=== PATIENT | female | born 1940 | race African-American/Black ===

== ENCOUNTER 2019-12-15 18:02 | Emergency (ER) | payer BC ==
[2019-12-15 18:11] VITALS: BMI 28.3
--- NOTE | 2019-12-15 18:12 | PDOC ---
Rapid Medical Evaluation Chief Complaint: Nasal Bleeding Time Seen by Provider: 12/15/19 18:11 Medical Evaluation: Allergies Allergy/AdvReac Type Severity Reaction Status Date / Time No Known Allergies Allergy Verified 12/15/19 18:07 Vital Signs Temp Pulse Resp BP Pulse Ox 98.0 F 99 H 16 153/68 98 12/15/19 18:08 12/15/19 18:08 12/15/19 18:08 12/15/19 18:08 12/15/19 18:08 12/15/19 18:12 79 y/o F w/ Nose bleed x 2.5 hours PE: Blood on mask ORDERS: LAbs Discharge Disposition - Diagnosis Epistaxis - Discharge Dispostion Condition at time of disposition: Stable - Referrals - Patient Instructions - Post Discharge Activity
[2019-12-15] MEDS ORDERED: OXYMETAZOLINE 0.05% NASAL SOLUTION 15 ML BOTTLE NS ONE (18:16)
[2019-12-15] MEDS ORDERED: LIDOCAINE HCL 1%, 10 MG/ML (20ML VIAL) ONE (18:16)
[2019-12-15] MEDS ORDERED: LIDOCAINE HCL 1%, 10 MG/ML (50 mL VIAL) SQ ONE (18:16)
--- NOTE | 2019-12-15 18:47 | PDOC ---
History of Present Illness - General Chief Complaint: Nasal Bleeding Stated Complaint: NOSE BLEED Time Seen by Provider: 12/15/19 18:11 History Source: Patient Exam Limitations: No Limitations - History of Present Illness Initial Comments: 12/15/19 18:48 79 y.o. F no significant PMHx. Patient is presenting due to anterior nasal bleed onset 3 hours ago. Patient has seasonal allergies and says her nose has been dry recently. Patient attempted to use napkins to clot but would not stop. In the ED we used licocaine 1%, afrim and nasal rhino 4.5mm to pack. PCP: Dr. Romero ENT: Dr. Eric ([address] [facility]) PMHx: No significant PSHx: Partial hysterectomy 1973 Meds: In Chart Allergies: NKDA Dispo: D/C Home 12/15/19 20:40 Is this a multiple visit Asthma Patient?: No Timing/Duration: 1-3 hours Severity: moderate Associated Symptoms: reports: nausea/vomiting Aspirin Received prior to arrival: Yes: 81 mg x 1 Beta Thaddeus Contraindications(Core Measure): Yes: Not Prescribed Beta Thaddeus Given by EMS(Core Measure): No Beta Thaddeus Taken at Home(Core Measure): No Beta Thaddeus Not Indicated at this Time(Core Measure): Yes Past History - Travel History Traveled outside of the country in the last 30 days: No Close contact w/someone who was outside of country & ill: No - Medical History Allergies/Adverse Reactions: Allergies Allergy/AdvReac Type Severity Reaction Status Date / Time No Known Allergies Allergy Verified 12/15/19 18:07 Home Medications: Ambulatory Orders Cephalexin [Keflex] 500 mg PO QID #20 capsule 12/15/19 COPD: No - Reproductive History Is Patient Now?: No - Psycho-Social/Smoking History Smoking History: Never smoked Have you smoked in the past 12 months: No Information on smoking cessation initiated: No - Substance Abuse Hx (Audit-C & DAST Scrn) How often the patient has a drink containing alcohol: Never Score: In Men: 4 or > Positive; In Women: 3 or > Positive: 0 Screen Result (Pos requires Nsg. Audit-10AR): Negative In the last yr the pt used illegal drug/Rx for NonMed reason: No Score: Yes response is considered Positive: 0 Screen Result (Positive result requires Nsg. DAST-10): Negative *Physical Exam - Vital Signs Last Vital Signs Temp Pulse Resp BP Pulse Ox 98.0 F 99 H 16 153/68 98 12/15/19 18:08 12/15/19 18:08 12/15/19 18:08 12/15/19 18:08 12/15/19 18:08 ED Treatment Course - LABORATORY CBC & Chemistry Diagram: 12/15/19 18:54 12/15/19 18:54 - Medications Given in the ED: ED Medications Discontinued Medications Generic Name Dose Route Start Last Admin Trade Name Juan PRN Reason Stop Dose Admin Lidocaine HCl 5 ml 12/15/19 18:16 12/15/19 18:33 Xylocaine 1% SQ 12/15/19 18:17 5 ml ONCE ONE Administration Oxymetazoline HCl 1 spray 12/15/19 18:16 12/15/19 18:33 Afrin - NS 12/15/19 18:17 1 spray ONCE ONE Administration Medical Decision Making - Medical Decision Making 12/15/19 18:58 79 y.o. F no significant PMHx. Patient is presenting due to anterior nasal bleed onset 3 hours ago. DDx: Anterior nose bleed, posterior nosebleed. Labs: Hgb 11.8, Hct 38.7, INR 1.02, PTT 36.7 Procedures: Licocaine 1%, Afrim and Nasal rhino 4.5mm to insert and pack Vitals: WNL Dispo: D/C home, f/u with ENT. 12/15/19 20:51 Discharge - Discharge Information Problems reviewed: Yes Clinical Impression/Diagnosis: Epistaxis Condition: Stable Disposition: HOME - Additional Discharge Information Prescriptions: Cephalexin [Keflex] 500 mg PO QID #20 capsule - Follow up/Referral Referrals: Jay Smith MD [Staff Physician] - Bernardino Rajan MD [Staff Physician] - - Patient Discharge Instructions Patient Printed Discharge Instructions: Nosebleed, DI for Nosebleed Additional Instructions: You were seen in the emergency department for Nosebleed. You received afrim, lidocaine and a nasal rhino . Your labs and vitals showed you are now stable and no active bleed. This can be caused by dry air, allergies. As such you were treated for a nosebleed. You were given afrim, lidocaine and nasal rhino in the emergency department and sent home with a prescription of keflex. Please follow up with your primary care physician and or ENT Dr. Dk Rajan regarding your visit to the emergency department. If you experience profound nose bleeds or shortness of breath, please return to the emergency department or call 911. - Post Discharge Activity
--- NOTE | 2019-12-15 18:52 | PDOC ---
Documentation entered by Watson Easley SCRIBE, acting as scribe for Willa Mcintyre DO. Willa Mcintyre, DO: This documentation has been prepared by the Tracee atwood Angel, SCRIBE, under my direction and personally reviewed by me in its entirety. I confirm that the documentation accurately reflects all work, treatment, procedures, and medical decision making performed by me. Attending Attestation - Resident Resident Name: [email or web address] - ED Attending Attestation I have performed the following: I have examined & evaluated the patient, The case was reviewed & discussed with the resident, I agree w/resident's findings & plan, Exceptions are as noted - HPI HPI: 12/15/19 18:58 The patient is a 79 year old female with no significant past medical history who presents to the ED with a nasal bleed from her left nostril for the last 3 hours. The patient notes feeling slightly lightheaded but states she normally gets nose bleeds around this time of year. Patient does take a daily baby aspirin. The patient does not have any other complaints here in the ED. - Physicial Exam PE: 12/15/19 18:45 gen: aaox3, active bleeding from L nare heent: MMM, no active bleeding in posterior pharynx, L nare with active venous bleeding, no exact site of bleeding visualized heart: +s1s2 reg lungs: cta b/l - Medical Decision Making 12/15/19 18:47 a/p: 79yo female who took a baby asa for a [place] and then developed anterior nasal bleeding today -states bleeding for 3 hours -states she feels a little lightheaded -venous bleeding L nare -when she blows her nose there are clots -no site visualized to cauterize -no bleeding posterior pharynx -pt packed and held pressure with afrin, but did not stop bleeding -anterior rapid rhino placed by the resident, inflated, no active bleeding -labs pending 12/15/19 19:32 no bleeding on re-eval 12/15/19 19:32 hgb 12.8 plts 176 12/15/19 20:30 labs reviewed pending repeat vitals Discharge - Discharge Information Problems reviewed: Yes Clinical Impression/Diagnosis: Epistaxis Condition: Stable Disposition: HOME - Admission No - Additional Discharge Information Prescriptions: Cephalexin [Keflex] 500 mg PO QID #20 capsule - Follow up/Referral Referrals: Jay Smith MD [Staff Physician] - - Patient Discharge Instructions Patient Printed Discharge Instructions: DI for Nosebleed - Post Discharge Activity
[2019-12-15 19:26] LABS: BASO % 0.5 % (0-2.0); HEMATOCRIT 38.7 % (32.4-45.2); HEMOGLOBIN 12.8 GM/dL (10.7-15.3); LYMPH % 38.9 % (8-40); MCH 28.7 pg (25.7-33.7); MEAN PLT VOLUME 10.9 fl (7.5-11.1); MONO % 13.6 % (3.8-10.2); PLATELET COUNT 176 K/MM3 (134-434); RBC 4.45 M/mm3 (3.60-5.2); RDW 13.4 % (11.6-15.6); WHITE BLOOD COUNT 4.4 K/mm3 (4.0-10.0)
[2019-12-15 19:37] LABS: INR 1.02 (0.83-1.09)
[2019-12-15 19:40] LABS: ACTIVATED PTT 36.7 SECONDS (25.2-36.5)
[2019-12-15 20:07] LABS: ALBUMIN 3.8 g/dl (3.4-5.0); BILIRUBIN,TOTAL 0.4 mg/dL (0.2-1); BLOOD UREA NITROGEN 22.1 mg/dL (7-18); CALCIUM 9.5 mg/dL (8.5-10.1); CREATININE 0.7 mg/dL (0.55-1.3); POTASSIUM 4.3 mmol/L (3.5-5.1); TOT PROT 7.4 g/dl (6.4-8.2)
[2019-12-15 20:59] VITALS: BP 157/80; PULSE 92; TEMP 98.3
== END 2019-12-15 21:09 | disposition home or self-care (01) ==
LOC: JER 18:02
DX: R04.0 Epistaxis (principal)
CPT/HCPCS: 36415; 80053; 85025; 85610; 85730; 86850; 86900; 86901; 99284-25

== ENCOUNTER 2019-12-18 15:54 | Emergency (ER) | payer BC ==
[2019-12-18 16:11] VITALS: BP 121/76; PULSE 94; TEMP 98.3; BMI 28.3
--- OUTSIDE RECORDS SUMMARY | 2019-12-18 16:21 | XMS ---
:1940 [facility] Organization [facility] Care Team Providers Name Role Phone Dodoo Unavailable Dodoo Unavailable UNDERWOOD 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 BUILDER Unavailable UNDERWOOD 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 BUILDER Unavailable UNDERWOOD 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 BUILDER Unavailable UNDERWOOD 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 BUILDER Unavailable UNDERWOOD 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 BUILDER Unavailable MARYCRUZ HYDE, IP Unavailable MARYCRUZ HYDE, IP Unavailable MARYCRUZ HYDE, IP Unavailable MARYCRUZ HYDE, IP Unavailable MARYCRUZ HYDE, IP Unavailable MARYCRUZ HYDE, IP Unavailable Adriane LATHE HAND Unavailable Adriane LATHE HAND Unavailable Adriane LATHE HAND Unavailable LONG CNM Unavailable LONG CNM Unavailable LONG CNM Unavailable LONG CNM Unavailable NICK HYDE Unavailable Unavailable NICK HYDE Unavailable Unavailable NICK HYDE Unavailable Unavailable NICK HYDE Unavailable Unavailable NICK HYDE Unavailable Unavailable NICK HYDE Unavailable Unavailable NICK HYDE Unavailable Unavailable NICK HYDE Unavailable Unavailable RODOLFO DPM Unavailable GRINION LATHE HAND, M Unavailable GRINION LATHE HAND, M Unavailable + GRINION LATHE HAND, M Unavailable Tor, DO Unavailable Unavailable LEAVELLE PA Unavailable LEAVELLE PA Unavailable LEAVELLE PA Unavailable LEAVELLE PA Unavailable JODY HYDE Unavailable JACKSON DDS Unavailable JONAS DO Unavailable JONAS DO Unavailable MD Nick Unavailable Unavailable Chapincito TOBAR Unavailable Unavailable Chapincito TOBAR Unavailable Unavailable Chapincito TOBAR Unavailable Unavailable Chapincito TOBAR Unavailable Unavailable Re-disclosure Warning The records that you are about to access may contain information from federally- assisted alcohol or drug abuse programs. If such information is present, then the following federally mandated warning applies: This information has been disclosed to you from records protected by federal confidentiality rules (42 CFR part 2). The federal rules prohibit you from making any further disclosure of this information unless further disclosure is expressly permitted by the written consent of the person to whom it pertains or as otherwise permitted by 42 CFR part 2. A general authorization for the release of medical or other information is NOT sufficient for this purpose. The Federal rules restrict any use of the information to criminally investigate or prosecute any alcohol or drug abuse patient.The records that you are about to access may contain highly sensitive health information, the redisclosure of which is protected by Article 27-F of the [place] State Public Health law. If you continue you may haveaccess to information: Regarding HIV / AIDS; Provided by facilities licensed or operated by the [facility] Office of Mental Health; or Provided by the [facility] Office for People With Developmental Disabilities. If such information is present, then the following [facility] mandated warning applies: This information has been disclosed to you from confidential records which are protected by state law. State law prohibits you from making any further disclosure of this information without the specific written consent of the person to whom it pertains, or as otherwise permitted by law. Any unauthorized further disclosure in violation of state law may result in a fine or prison sentence or both. A general authorization for the release of medical or other information is NOT sufficient authorization for further disclosure. Allergies and Adverse Reactions Type Description Substance Reaction Status Data Source(s ) Drug allergy Penicillins Penicillins UNKNOWN [facility] Drug allergy penicillin G penicillin G Active JHON ([facility] benzathine 069821 benzathine 987805 [place] UNT/ML Injectable UNT/ML Injectable Health Center) Suspension Suspension Drug allergy penicillin G penicillin G Active JHON ([facility] benzathine 915977 benzathine 362910 [place]ighborhood UNT/ML Injectable UNT/ML Injectable Health Center) Suspension Suspension Drug allergy penicillin G penicillin G Active JHON ([facility] benzathine 935422 benzathine 982338 [place] UNT/ML Injectable UNT/ML Injectable Health Center) Suspension Suspension Drug allergy penicillin G penicillin G Active JHON ([facility] benzathine 530453 benzathine 590879 [place] UNT/ML Injectable UNT/ML Injectable Health Center) Suspension Suspension Drug allergy penicillin G penicillin G Active JHON ([facility] benzathine 804519 benzathine 301101 [place]ighborhood UNT/ML Injectable UNT/ML Injectable Health Center) Suspension Suspension Encounters Encounter Providers Location Date Indications Data Source(s ) Outpatient<td Attender: Dasia Vides Limb Pain Thigh GR [place] ([place] ID="encounterT Adriane [facility] 0 [place] ypeDescription 10:15:00 Neighborho od ID0">GB AM EDT - Health Center) WALK-IN</td><t d>Dasia Forrest 0 LATHE HAND</td><td>[facility]</td><td >08/25/2019</t d><td><content ID="encounterD iagnosisID0-0" >Limb Pain Thigh</content ></td> Limb Pain Thigh Outpatient<td Attender: [facility] 05/25/2019 Acquired [place] ID="encounterTypeDescriptionID1">OFFICE [facility] 1 0:00:00 AM Deformity of ([place] VISIT</td><td>[facility] EST - [place]e - [place] Neighborhood DP</td><td>[facility] DPM 05/25/2019 Toe Health Center</td><td>05/25/2019</td><td><content 01:0 0:05 PM LeftAcquired Center) ID="encounterDiagnosisID1-0">Acquired EST Deformity of Deformity of Toe - [place] Toe Toe - Hammer Right</content>, <content Toe Right ID="encounterDiagnosisID1-1">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</content></td> Acquired Deformity of Toe - [place] Toe L eft Acquired Deformity of Toe - [place] Toe R ight Outpatient<td Attender: [facility] 05/06/2019 [place] ID="encounterTypeDescriptionID2">*No [facility] 05:09:00 P M ([place] Show*</td><td>[facility] EST - Neighborhood PA</td><td>[facility] PA 05/06/2019 Health Center</td><td>05/06/2019</td><td></td> 11:59:0 0 PM Center) EST Outpatient Attender: 02/09/2019 Ciaran De Santiago 02:06:00 PM Alina Romero MD EST R E E N M A M M O R X O P M L B SCREEN MAMMO RX OP MLB Outpatient<td ID="encounterTypeDescriptionID3">COMPLETE Attender : [facility] 02/04/2019 Osteoarthritis Localized Shoulder [place] PHYSICAL EXAM</td><td>ANYI ROMERO MD</td><td>[facility] 11:30:00 AM RightOsteoarthritis Localized ([facility]</td><td>02/04/2019</td><td><aldo ROMERO MD [facility] EST - ShoulderOsteoarthritis Localized Neighborhood ID="encounterDiagnosisID3-0">Hyperlipidemia</content>, 02/04/2019 [facility] <content ID="encounterDiagnosisID3-1">Glucose 01:09:18 PM Localized Shoulder RightOsteoarthritis Center) Intolerance</content>, <content EST Loca lized ShoulderOsteoarthritis ID="encounterDiagnosisID3-2">Osteoarthritis</content>, Localized PrimaryOsteoarthritisGlucose <content ID="encounterDiagnosisID3-3">Osteoarthritis IntoleranceGlucose Localized Primary</content>, <content IntoleranceHyperlipidemiaHyperlipidemia ID="encounterDiagnosisID3-4">Osteoarthritis Localized Shoulder</content>, <content ID="encounterDiagnosisID3-5">Osteoarthritis Localized Shoulder Right</content></td> Osteoarthritis Localized Shoulder Right Osteoarthritis Localized Shoulder Osteoarthritis Localized Primary Osteoarthritis Osteoarthritis Localized Shoulder Right Osteoarthritis Localized Shoulder Osteoarthritis Localized Primary Osteoarthritis Glucose Intolerance Glucose Intolerance Hyperlipidemia Hyperlipidemia Outpatient<td Attender: [facility] 01/21/2019 [place] ID="encounterTypeDescriptionID4">*No [facility] 10:40:00 A M ([place] Show*</td><td>[facility] EDT - Neighborhood DPM</td><td>[facility] DP 01/21/2019 Health Center</td><td>01/21/2019</td><td></td> 11:59:0 0 PM Center) EDT Outpatient<td Attender: [facility] 01/19/2019 Alina [place] ID="encounterTypeDescriptionID5">OFFICE [facility] 11:00:0 0 AM a ([place] VISIT</td><td>BELLFLOWER JODY VERA MD Center EDT - t Neighborhood </td><td>[facility] 01/19/2019 a Health Center</td><td>01/19/2019</td><td><mele 02:41: 17 PM r Center) nt ID="encounterDiagnosisID5-0">Cataract EDT a Senile Nuclear</content></td> c t S e n i l e N u c l e a r C a t a r a c t S e n i l e N u c l e a r C a t a r a c t S e n i l e N u c l e a r Cataract Senile Nuclear Cataract Senile Nuclear Cataract Senile Nuclear Outpatient<td Attender: [facility] 10/28/2018 [place] ID="encounterTypeDescriptionID6">*No [facility] 06:02:00 P M ([place] Show*</td><td>ANYI ROMERO MD [place] HERMILO Stark MD</td><td>[facility] 10/28/2018 [facility]</td><td>10/28/2018</td><td></td> 11:59:0 0 PM Center) EDT Outpatient<td Attender: [facility] 10/05/2018 [facility] ID="encounterTypeDescriptionID7">[facility] 11:30:00 AM o ([place] WALK-IN</td><td>BELLFLOWER JODY VERA MD [place] EDT - yonatan Stark MD</td><td>[facility] 10/05/2018 [facility]</td><td>10/05/2018</td><td><mele 12:41: 01 PM u Center) nt EDT n ID="encounterDiagnosisID7-0">Conjunctivi c tis Acute Follicular</content></td> t i v i t i s A c u t e F o l l i c u l a r C o n j u n c t i v i t i s A c u t e F o l l i c u l a r C o n j u n c t i v i t i s A c u t e F o l l i c u l a r C o n j u n c t i v i t i s A c u t e F o l l i c u l a r Conjunctivitis Acute Follicular Conjunctivitis Acute Follicular Conjunctivitis Acute Follicular Conjunctivitis Acute Follicular Outpatient<td ID="encounterTypeDescriptionID8">OFFICE Attender: [facility] 05/20/2018 Acute Meniscal Tear RightAcute Meniscal Tear LateralAc cachil dehe Meniscal [place] VISIT</td><td>ANYI ROMERO MD</td><td>[facility] 01:00:00 PM TearShoulder Sprain RightShoulder SprainSprainAcute Meniscal Tear ([facility]</td><td>05/20/2018</td><td><content [facility] EST - RightAcute Meniscal Tear LateralAcute Meniscal TearShoulder Sprain Neighborhood ID="encounterDiagnosisID8-0">Sprain</content>, <content 05/20/2018 RightShoulder SprainSprainAcute Meniscal Tear RightAcute Meniscal Tear Health ID="encounterDiagnosisID8-1">Shoulder Sprain</content>, 02:55:25 PM LateralAcute Meniscal TearShoulder Sprain [facility]) <content ID="encounterDiagnosisID8-2">Shoulder Sprain EST SprainSprainAcute Meniscal Tear RightAcute Meniscal Tear LateralAcute Right</content>, <content Me niscal TearShoulder Sprain RightShoulder SprainSprainAcute Meniscal ID="encounterDiagnosisID8-3">Acute Meniscal Tear</content>, Tear RightAcute Meniscal Tear LateralAcute Meniscal TearShoulder Sprain <content ID="encounterDiagnosisID8-4">Acute Meniscal Tear RightShoulder SprainSprainAcute Meniscal Tear MedialAcute Meniscal Tear Medial</content>, <content M edialAcute Meniscal Tear MedialAcute Meniscal Tear MedialAcute ID="encounterDiagnosisID8-5">Acute Meniscal Tear Meniscal Tear Lateral</content>, <content MedialHyperlipidemiaHyperlipidemiaHyperlipidemiaHyperlipidemiaHyperlipi ID="encounterDiagnosisID8-6">Acute Meniscal Tear demia Right</content>, <content ID="encounterDiagnosisID8-7">Hyperlipidemia</content></td> Acute Meniscal Tear Right Acute Meniscal Tear Lateral Acute Meniscal Tear Shoulder Sprain Right Shoulder Sprain Sprain Acute Meniscal Tear Right Acute Meniscal Tear Lateral Acute Meniscal Tear Shoulder Sprain Right Shoulder Sprain Sprain Acute Meniscal Tear Right Acute Meniscal Tear Lateral Acute Meniscal Tear Shoulder Sprain Right Shoulder Sprain Sprain Acute Meniscal Tear Right Acute Meniscal Tear Lateral Acute Meniscal Tear Shoulder Sprain Right Shoulder Sprain Sprain Acute Meniscal Tear Right Acute Meniscal Tear Lateral Acute Meniscal Tear Shoulder Sprain Right Shoulder Sprain Sprain Acute Meniscal Tear Medial Acute Meniscal Tear Medial Acute Meniscal Tear Medial Acute Meniscal Tear Medial Acute Meniscal Tear Medial Hyperlipidemia Hyperlipidemia Hyperlipidemia Hyperlipidemia Hyperlipidemia Emergency Attender: [facility] 05/14/2018 12:04:00 FALL, SHOULD ER Loris Tor DO PM EST - 05/14/2018 [facility] 01:56:00 PM EST ARR-WI FALL, SHOULDER PAIN ARR-W I Outpatient<td Attender: [facility] 01/23/2018 [place] ID="encounterTypeDescriptionID9">*No [facility] 04:51:00 P M ([place] Show*</td><td>BELLFLOWER JODY VERA MD Center EDT - [facility]</td><td>[facility] 01/23/2018 Health Center</td><td>01/23/2018</td><td></td> 11:59:0 0 PM Center) EDT Outpatient<td Attender: [facility] 01/22/2018 R [place] ID="[id number]">[place] 01:30:00 PM o ([place] ANNUAL</td><td>[facility] Center EDT - u [facility] CN</td><td>[facility] 01/22/2018 [facility]</td><td>01/22/2018</td><td><mele 02:45: 18 PM i Center) nt ID="ulzoatmrjWkqydzjwtGH97-7">Routine EDT n History and Physical</content></td> e H i s t o r y a n d P h y s i c a l R o u t i n e H i s t o r y a n d P h y s i c a l R o u t i n e H i s t o r y a n d P h y s i c a l R o u t i n e H i s t o r y a n d P h y s i c a l R o u t i n e H i s t o r y a n d P h y s i c a l Routine History and Physical Routine History and Physical Routine History and Physical Routine History and Physical Routine History and Physical Outpatient<td Attender: [facility] 01/01/2018 [place] ID="sc[id number]">OFFICE [facility] 11:15: 00 AM ([place] VISIT</td><td>[facility] EDT - Neighborhood DPM</td><td>[facility] 01/01/2018 Health Center</td><td>01/01/2018</td><td></td> 12:20:2 1 PM Center) EDT Outpatient<td Attender: [facility] 12/29/2017 [place] ID="qs[id number]">*No [facility] 11:23:00 AM ([place] Show*</td><td>ELIZABETH VERA MD [place] HERMILO Stark MD</td><td>[facility] 12/29/2017 [facility] Center</td><td>12/29/2017</td><td></td> 11:59:0 0 PM Center) EDT Outpatient<td Attender: [facility] 12/11/2017 [place] ID="pe[id number]">*No [facility] 10:35:00 AM ([place] Show*</td><td>[facility] EDT - Neighborhood DP</td><td>[facility] 12/11/2017 Health Center</td><td>12/11/2017</td><td></td> 11:59:0 0 PM Center) EDT Outpatient<td Attender: [facility] 11/25/2017 [place] ID="ay[id number]">*No [facility] 01:14:00 PM ([place] Show*</td><td>ELIZABETH VERA MD [place] HERMILO Stark MD</td><td>[facility] 11/25/2017 Health Center</td><td>11/25/2017</td><td></td> 11:59:0 0 PM Center) EDT Outpatient<td Attender: [facility] 10/30/2017 D [place] ID="[id number]">OFFICE [facility] 01:30: 00 PM e ([place] VISIT</td><td>ANYI ROMERO MD Center HERMILO Stark MD</td><td>[facility] 10/30/2017 [facility]</td><td>10/30/2017</td><td><conten 02:41 :02 PM a [place]) t EDT t ID="mwgmsiynfEkwpcejfqIW69-3">Assess/inte o rvention Patient Screened For Future Fall p Risk</content>, <content h ID="iredioasfFecwtyjtxBP80-3">Assess/inte y rv Future Fall Risk Document No Fall in t Past Year</content>, <content o ID="ahfejyijkTgfeducifYJ78-9">Questionnai s res Phq-9 Quick Depression Assessment i Panel</content>, <content s ID="cbrkioildDazxdecfgMW03-1">Hyperlipide O cristhian</content>, <content n ID="nbdtwhsbzLmpsshixpXJ00-7">Dermatophyt y osis Nails</content>, <content c ID="rithrmofdDygpyctbmMF85-7">Dermatophyt h osis Onychomycosis Toenails</content>, o <content m ID="laiuvxwltUnpoiqngtVQ71-8">Glucose y Intolerance</content></td> c o s i s T o e n a i l s D e r m a t o p h y t o s i s N a i l s Q u e s t i o n n a i r e s P h q - 9 Q u i c k D e p r e s s i o n A s s e s s m e n t P a n e l A s s e s s / i n t e r v F u t u r e F a l l R i s k D o c u m e n t N o F a l l i n P a s t Y e a r A s s e s s / i n t e r v e n t i o n P a t i e n t S c r e e n e d F o r F u t u r e F a l l R i s k D e r m a t o p h y t o s i s O n y c h o m y c o s i s T o e n a i l s D e r m a t o p h y t o s i s N a i l s Q u e s t i o n n a i r e s P h q - 9 Q u i c k D e p r e s s i o n A s s e s s m e n t P a n e l A s s e s s / i n t e r v F u t u r e F a l l R i s k D o c u m e n t N o F a l l i n P a s t Y e a r A s s e s s / i n t e r v e n t i o n P a t i e n t S c r e e n e d F o r F u t u r e F a l l R i s k D e r m a t o p h y t o s i s O n y c h o m y c o s i s T o e n a i l s D e r m a t o p h y t o s i s N a i l s Q u e s t i o n n a i r e s P h q - 9 Q u i c k D e p r e s s i o n A s s e s s m e n t P a n e l A s s e s s / i n t e r v F u t u r e F a l l R i s k D o c u m e n t N o F a l l i n P a s t Y e a r A s s e s s / i n t e r v e n t i o n P a t i e n t S c r e e n e d F o r F u t u r e F a l l R i s k D e r m a t o p h y t o s i s O n y c h o m y c o s i s T o e n a i l s D e r m a t o p h y t o s i s N a i l s Q u e s t i o n n a i r e s P h q - 9 Q u i c k D e p r e s s i o n A s s e s s m e n t P a n e l A s s e s s / i n t e r v F u t u r e F a l l R i s k D o c u m e n t N o F a l l i n P a s t Y e a r A s s e s s / i n t e r v e n t i o n P a t i e n t S c r e e n e d F o r F u t u r e F a l l R i s k D e r m a t o p h y t o s i s O n y c h o m y c o s i s T o e n a i l s D e r m a t o p h y t o s i s N a i l s Q u e s t i o n n a i r e s P h q - 9 Q u i c k D e p r e s s i o n A s s e s s m e n t P a n e l A s s e s s / i n t e r v F u t u r e F a l l R i s k D o c u m e n t N o F a l l i n P a s t Y e a r A s s e s s / i n t e r v e n t i o n P a t i e n t S c r e e n e d F o r F u t u r e F a l l R i s k G l u c o s e I n t o l e r a n c e G l u c o s e I n t o l e r a n c e G l u c o s e I n t o l e r a n c e G l u c o s e I n t o l e r a n c e G l u c o s e I n t o l e r a n c e H y p e r l i p i d e m i a H y p e r l i p i d e m i a H y p e r l i p i d e m i a H y p e r l i p i d e m i a H y p e r l i p i d e m i a Dermatophytosis Onychomycosis Toenails Dermatophytosis Nails Questionnaires Phq-9 Quick Depression As sessment Panel Assess/interv Future Fall Risk Document No Fall in Past Year Assess/intervention Patient Screened For Future Fall Risk Dermatophytosis Onychomycosis Toenails Dermatophytosis Nails Questionnaires Phq-9 Quick Depression As sessment Panel Assess/interv Future Fall Risk Document No Fall in Past Year Assess/intervention Patient Screened For Future Fall Risk Dermatophytosis Onychomycosis Toenails Dermatophytosis Nails Questionnaires Phq-9 Quick Depression As sessment Panel Assess/interv Future Fall Risk Document No Fall in Past Year Assess/intervention Patient Screened For Future Fall Risk Dermatophytosis Onychomycosis Toenails Dermatophytosis Nails Questionnaires Phq-9 Quick Depression As sessment Panel Assess/interv Future Fall Risk Document No Fall in Past Year Assess/intervention Patient Screened For Future Fall Risk Dermatophytosis Onychomycosis Toenails Dermatophytosis Nails Questionnaires Phq-9 Quick Depression As sessment Panel Assess/interv Future Fall Risk Document No Fall in Past Year Assess/intervention Patient Screened For Future Fall Risk Glucose Intolerance Glucose Intolerance Glucose Intolerance Glucose Intolerance Glucose Intolerance Hyperlipidemia Hyperlipidemia Hyperlipidemia Hyperlipidemia Hyperlipidemia Outpatient<td Attender: [facility] 10/30/2017 [place] ID="[id number]">WALKINS</td><td>[facility] 11:45:00 AM ([facility] DPM</td><td>[facility] EDT - [facility] Center</td><td>10/30/2017</td><td></td> DPM [address] [place] [address] 12:01:57 PM Center) EDT Outpatient<td ID="[id number]">*No Attender: [facility] 10/30/2017 D JHON Show*</td><td>[employer] DPM</td><td>[facility] 11:15:00 AM e ([facility]</td><td>10/30/2017</td><td><content [facility] EDT - r Neighborhood ID="awflbusfeObrowgyoeTN21-2">Dermatophytosis DPM 0 10/30/2017 Health Nails</content>, <content 11:59:00 PM a [place]) ID="fhlkedmfdHkvosvyrbJV35-7">Dermatophytosis Nails EDT t Onychomycosis</content></td> o p h y t o s i s N a i l s O n y c h o m y c o s i s D e r m a t o p h y t o s i s N a i l s D e r m a t o p h y t o s i s N a i l s O n y c h o m y c o s i s D e r m a t o p h y t o s i s N a i l s D e r m a t o p h y t o s i s N a i l s O n y c h o m y c o s i s D e r m a t o p h y t o s i s N a i l s D e r m a t o p h y t o s i s N a i l s O n y c h o m y c o s i s D e r m a t o p h y t o s i s N a i l s D e r m a t o p h y t o s i s N a i l s O n y c h o m y c o s i s D e r m a t o p h y t o s i s N a i l s Dermatophytosis Nails Onychomycosis Dermatophytosis Nails Dermatophytosis Nails Onychomycosis Dermatophytosis Nails Dermatophytosis Nails Onychomycosis Dermatophytosis Nails Dermatophytosis Nails Onychomycosis Dermatophytosis Nails Dermatophytosis Nails Onychomycosis Dermatophytosis Nails Outpatient<td Attender: [facility] 10/14/2017 [place] ID="[id number]">*[facility] 10:38: 00 AM ([place] Update*</td><td>HEATHER [facility]ER[facility]OD [facility] Center EDT - 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</td><td>[facility] 10/14/2017 Health Center</td><td>10/14/2017</td><td></td> 11:59:0 0 PM Center) EDT Outpatient<td Attender: 06/16/2017 [place] ID="[id number]">[Paul DE SANTIAGO 12:41 :00 PM ([place] t Encounter]</td><td>ANYI ROMERO MD EDT - [place] [facility]</td><td> 06/16/2017 Health </td><td>06/16/2017</td><td></td> 11:59:00 PM [place]) EDT Outpatient<td Attender: [facility] 04/29/2017 O [place] ID="z[id number]">FLU [facility] 12:00:00 PM v ([place] VACCINE ONLY</td><td>[place] 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 BUILDER Center EST - e 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</td><td>[facility] 04/29/2017 [facility]</td><td>04/29/2017</td><td><conten 05:16 :58 PM w [place]) t EST e ID="iheeccjkbJxtmbzpclZJ86-0">Overweight< i /content>, <content g ID="nbrryhgxeCdckvoyiwUO03-7">Vitamin D h Deficiency</content>, <content t ID="xwvhjrjcnIxuyqevbuWW02-3">Hyperlipide O cristhian</content>, <content v ID="lygdijvyvJelcehopdYH72-9">Glucose e Intolerance</content></td> r w e i g h t O v e r w e i g h t O v e r w e i g h t O v e r w e i g h t G l u c o s e I n t o l e r a n c e V i t a m i n D D e f i c i e n c y G l u c o s e I n t o l e r a n c e V i t a m i n D D e f i c i e n c y G l u c o s e I n t o l e r a n c e V i t a m i n D D e f i c i e n c y G l u c o s e I n t o l e r a n c e V i t a m i n D D e f i c i e n c y G l u c o s e I n t o l e r a n c e V i t a m i n D D e f i c i e n c y H y p e r l i p i d e m i a H y p e r l i p i d e m i a H y p e r l i p i d e m i a H y p e r l i p i d e m i a H y p e r l i p i d e m i a Overweight Overweight Overweight Overweight Overweight Glucose Intolerance Vitamin D Deficiency Glucose Intolerance Vitamin D Deficiency Glucose Intolerance Vitamin D Deficiency Glucose Intolerance Vitamin D Deficiency Glucose Intolerance Vitamin D Deficiency Hyperlipidemia Hyperlipidemia Hyperlipidemia Hyperlipidemia Hyperlipidemia Outpatient<td [facility]: [facility]2017 Dermatophytosis CRESCENCIO ID="[id number]">OFFICE [facility] 10:00:00 AM NailsAcquired ([place] VISIT</td><td>[facility] EST - Def ormity of Toe - Neighborhood DPM</td><td>[facility] DP [facility]29[facility]2017 [facility]</td><td>04/29/2017</td><td><content 10:5 5:50 AM LeftAcquired Center) ID="[id number]">Acquired EST Deformity of Toe - Deformity of Toe - Hammer Toe Right</content>, Hammer Toe <content RightDermatophytosis ID="[id number]">Acquired Nails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</content>, Deformity of Toe - <content Hammer Toe ID="crddvbwqiPuxhfwtewMJ15-5">Dermatophytosis LeftAcquired Nails</content></td> Deformity of To e - Hammer Toe RightDermatophytosis Nails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Acquired Deformity of Toe - Hammer Toe RightDermatophytosis Nails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Acquired Deformity of Toe - Hammer Toe RightDermatophytosis Nails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Acquired Deformity of Toe - Hammer Toe Right Dermatophytosis Nails Acquired Deformity of Toe - Hammer Toe L eft Acquired Deformity of Toe - Hammer Toe R ight Dermatophytosis Nails Acquired Deformity of Toe - Hammer Toe L eft Acquired Deformity of Toe - Hammer Toe R ight Dermatophytosis Nails Acquired Deformity of Toe - Hammer Toe L eft Acquired Deformity of Toe - Hammer Toe R ight Dermatophytosis Nails Acquired Deformity of Toe - Hammer Toe L eft Acquired Deformity of Toe - Hammer Toe R ight Dermatophytosis Nails Acquired Deformity of Toe - Hammer Toe L eft Acquired Deformity of Toe - Hammer Toe R ight Outpatient<td Attender: 04/24/2017 [place] ID="[id number]">*Ricki LINCOLN 02:06: 00 PM ([place] Update*</td><td>LATONIA TOBAR EST - Neighborhood ANP</td><td> [facility] 04/24/2017 Health </td><td>04/24/2017</td><td></td> 11:59:00 PM Center) EST Outpatient<td Attender: Thomas 02/18/2017 Catar [place] ID="cp[id number]">OFFICE ELIZABETH chin 10:00: 00 AM act ([place] VISIT</td><td>ELIZABETH VERA MD Healt EST - [place] Neighborhood </td><td>[facility] 02/18/2017 e Health Center</td><td>02/18/2017</td><td><joe Sky 11:42 :51 AM Nucle Center) t r EST arBle ID="[id number]">Blepharitis phari </content>, <content tisCa ID="gpreyvlkqCkyzlvutiVT70-3">Cataract tarac [place] Nuclear</content></td> t [place] e Nucle arBle phari tisCa tarac t [place] e Nucle arBle phari tisCa tarac t [place] Nucle arBle phari tisCa tarac t [place] e Nucle arBle phari tis Cataract [place] Nuclear Blepharitis Cataract [place] Nuclear Blepharitis Cataract [place] Nuclear Blepharitis Cataract [place] Nuclear Blepharitis Cataract [place] Nuclear Blepharitis Outpatient<td ID="xvmzvveclBgprIztlhrnzzxhTL08">GB Attender: [facility] 02/04/2017 Shad [place] WALK-IN</td><td>ELIZABETH VERA MD</td><td>[facility] 02:15:00 PM ([facility]</td><td>02/04/2017</td><td><content JODY HYDE Center EST - Neighborhood ID="lneuvaoxaCjqcyamqcOQ43-3">Chalazion</content></td> 02/04/2017 Health 03:20:15 PM Center) EST Chalazion Chalazion Chalazion Chalazion Chalazion Outpatient<td ID="etjuigapnFosoKgscdcukasvBQ57">OFFICE Attender: [facility] 12/30/2016 OverweightOverweightOverweightOverweightOverweight [facility]</td><td>[facility]</td><td>[facility] 09:45:00 AM ([facility]</td><td>12/30/2016</td><td><content [facility] EDT - Neighborhood ID="xvgybmnbpSbahyepjaGX03-4">Overweight</content></td> AHNP 12/30/2016 Health 11:02:23 AM Center) EDT Overweight Overweight Overweight Overweight Overweight Outpatient<td Attender: [facility] 11/19/2016 [place] ID="nhteifczjGmamLkhdtxgauiuNE20">*No [facility] 11:58:00 AM ([place] Show*</td><td>[facility] EDT - Neighborhood DP</td><td>[facility] 11/19/2016 Health Center</td><td>11/19/2016</td><td></td> 11:59:0 0 PM Center) EDT Outpatient<td Attender: [facility] 10/29/2016 [place] ID="ghuxlwstiNtegLzvjltrvrsvJA48">*No [facility] 06:29:00 PM ([place] Show*</td><td>ELIZABETH VERA MD [place] EDT - Neighborhood </td><td>[facility] 10/29/2016 Health Center</td><td>10/29/2016</td><td></td> 11:59:0 0 PM Center) EDT Outpatient<td Attender: 10/14/2016 [place] ID="hn[id number]">*OUTRE LATONIA 03:24: 00 PM (Eva Wolf [facility]*</td><td>[facility] ANP</td><td> [facility] EDT - Neighborhood [facility] 10/14/2016 Health </td><td>10/14/2016</td><td></td> 11:59:00 PM Center) EDT Outpatient<td Attender: [facility] 09/25/2016 [place] ID="gb[id number]">*No [facility] 05:14:00 PM ([place] Show*</td><td>[facility] EDT - [facility] ANP</td><td>[facility] 09/25/2016 Health Center</td><td>09/25/2016</td><td></td> 11:59:0 0 PM [place]) EDT Outpatient<td Attender: [facility] 09/17/2016 T [place] ID="ngrcyzdbcKiwvHdxpydgngnpGB25">OFFICE [facility] 10:15: 00 AM e (Eva Wolf VISIT</td><td>[facility] EDT - n [facility] DP</td><td>[facility] 09/17/2016 o [facility] Center</td><td>09/17/2016</td><td><mele 11:37: 33 AM s Center) nt EDT y ID="wonjgzdcpPwdvslqouMJ89-3">Dermatophy n tosis Nails</content>, <content o ID="cwdmdixkmNnzopfonvAU45-7">Ingrowing v Toenail</content>, <content i ID="yxolwxroqMlbigupjhZH63-8">Tenosynovi t tis Foot Right</content>, <content i ID="wmzisdqnpNsydoehciNT23-7">Tenosynovi s tis Foot Left</content></td> F o o t L e f t T e n o s y n o v i t i s F o o t R i g h t I n g r o w i n g T o e n a i l D e r m a t o p h y t o s i s N a i l s T e n o s y n o v i t i s F o o t L e f t T e n o s y n o v i t i s F o o t R i g h t I n g r o w i n g T o e n a i l D e r m a t o p h y t o s i s N a i l s T e n o s y n o v i t i s F o o t L e f t T e n o s y n o v i t i s F o o t R i g h t I n g r o w i n g T o e n a i l D e r m a t o p h y t o s i s N a i l s T e n o s y n o v i t i s F o o t L e f t T e n o s y n o v i t i s F o o t R i g h t I n g r o w i n g T o e n a i l D e r m a t o p h y t o s i s N a i l s T e n o s y n o v i t i s F o o t L e f t T e n o s y n o v i t i s F o o t R i g h t I n g r o w i n g T o e n a i l D e r m a t o p h y t o s i s N a i l s Tenosynovitis Foot Left Tenosynovitis Foot Right Ingrowing Toenail Dermatophytosis Nails Tenosynovitis Foot Left Tenosynovitis Foot Right Ingrowing Toenail Dermatophytosis Nails Tenosynovitis Foot Left Tenosynovitis Foot Right Ingrowing Toenail Dermatophytosis Nails Tenosynovitis Foot Left Tenosynovitis Foot Right Ingrowing Toenail Dermatophytosis Nails Tenosynovitis Foot Left Tenosynovitis Foot Right Ingrowing Toenail Dermatophytosis Nails Outpatient<td Attender: Mahogany 09/10/2016 Questionnaires Phq-9 [facility] ID="bh[id number]">OFFICE [facility] 12:45:00 PM Depression Assessment ([place] VISIT</td><td>LATONIA TOBAR ANP</td><td>Mahogany [facility] EDT - PanelPreventive Med Standardized [facility]</td><td>09/10/2016</td><td><content AHNP 09/10/2016 Depression Screening: Negative Health ID="ymxhpasxdLwlevdgqfLY57-1">Overweight</content>, 01:48:37 PM For Center) <content ID="ygqtzkhdmGufnwphpqQM25-3">Preventive EDT SymptomsOverweightQuestionnaires Med Standardized Depression Screening: Negative For Phq-9 Quick Depression Assessment Symptoms</content>, <content PanelPr eventive Med Standardized ID="dfzyzkbevPzlxwelsdDY14-6">Questionnaires Phq-9 Depression Screening: Negative Quick Depression Assessment Panel</content></td> For SymptomsOverweightQuestio nnaires Phq-9 Quick Depression As sessment PanelPreventive Med Stand ardized Depression Screening: Neg ative For SymptomsOverweightQuestio nnaires Phq-9 Quick Depression As sessment PanelPreventive Med Stand ardized Depression Screening: Neg ative For SymptomsOverweightQuestio nnaires Phq-9 Quick Depression As sessment PanelPreventive Med Stand ardized Depression Screening: Neg ative For SymptomsOverweight Questionnaires Phq-9 Quick Depression As sessment Panel Preventive Med Standardized Depression S creening: Negative For Symptoms Overweight Questionnaires Phq-9 Quick Depression As sessment Panel Preventive Med Standardized Depression S creening: Negative For Symptoms Overweight Questionnaires Phq-9 Quick Depression As sessment Panel Preventive Med Standardized Depression S creening: Negative For Symptoms Overweight Questionnaires Phq-9 Quick Depression As sessment Panel Preventive Med Standardized Depression S creening: Negative For Symptoms Overweight Questionnaires Phq-9 Quick Depression As sessment Panel Preventive Med Standardized Depression S creening: Negative For Symptoms Overweight Outpatient<td Attender: Mahogany 07/16/2016 [place] ID="kd[id number]">*No [facility] 06:14:00 PM ([place] Show*</td><td>ANYI ROMERO MD Center EDT - [facility]</td><td>[facility] 07/16/2016 [facility]</td><td>07/16/2016</td><td></td> 11:59:0 0 PM Center) EDT Outpatient<td Attender: [facility] 06/26/2016 [place] ID="co[id number]">*No [facility] 05:09:00 PM ([place] Show*</td><td>ANYI ROMERO MD [place] EDT - [place] HYDE</td><td>[facility] 06/26/2016 [facility] Center</td><td>06/26/2016</td><td></td> 11:59:0 0 PM Center) EDT Outpatient<td Attender: [facility] 04/30/2016 [place] ID="gt[id number]">*No [facility] 01:48:00 PM ([place] Show*</td><td>ELIZABETH VERA MD [place] EST - [place] HYDE</td><td>[facility] 04/30/2016 [facility]</td><td>04/30/2016</td><td></td> 11:59:0 0 PM Center) EST Outpatient<td Attender: [facility] 03/05/2016 C [place] ID="hr[id number]">OFFICE [facility] 09:00: 00 AM o ([place] VISIT</td><td>ELIZABETH VERA MD [place] EST - n [place] HYDE</td><td>[facility] 03/05/2016 [facility]</td><td>03/05/2016</td><td><mele 11:01: 15 AM u Center) nt EST n ID="prnslenjoHelnfxgodGO92-4">Blephariti c s Squamous</content>, <content t ID="vetxiusrlVrmydxipvEB94-1">Conjunctiv i itis Chronic Follicular</content></td> v i t i s C h r o n i c F o l l i c u l a r B l e p h a r i t i s S q u a m o u s C o n j u n c t i v i t i s C h r o n i c F o l l i c u l a r B l e p h a r i t i s S q u a m o u s C o n j u n c t i v i t i s C h r o n i c F o l l i c u l a r B l e p h a r i t i s S q u a m o u s C o n j u n c t i v i t i s C h r o n i c F o l l i c u l a r B l e p h a r i t i s S q u a m o u s C o n j u n c t i v i t i s C h r o n i c F o l l i c u l a r B l e p h a r i t i s S q u a m o u s Conjunctivitis 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 Squamous Outpatient<td ID="cy[id number]">OFFICE Attender: [facility] 01/23/2016 Vitamin D DeficiencyVitamin D Deficiency Vitamin D DeficiencyVitamin D [place] VISIT</td><td>ANYI ROMERO MD</td><td>[facility] 12:30:00 PM DeficiencyVitamin D ([facility]</td><td>01/23/2016</td><td><aldo ROMERO MD Center EDT - DeficiencyHyperlipidemiaHyperlipidemiaHyperlipidemiaHyperlipidemiaHyperlipidemia Neighborhood ID="[id number]">Hyperlipidemia</content>, 01/23/2016 Health <content ID="lnjbkzfyqObtorrxgvNY13-2">Vitamin D 11:20:49 AM [place]) Deficiency</content></td> EDT Vitamin D Deficiency Vitamin D Deficiency Vitamin D Deficiency Vitamin D Deficiency Vitamin D Deficiency Hyperlipidemia Hyperlipidemia Hyperlipidemia Hyperlipidemia Hyperlipidemia Outpatient<td Attender: [facility] 01/23/2016 Acquired Deformity [place] ID="ahncejunyQoysRqdpxwjccfuSL32">OFFICE [facility] 09:30:00 AM of Toe - Hammer Toe ([place] VISIT</td><td>[facility] EDT - Rig htXerosis Neighborhood DPM</td><td>[facility] 01/23/2016 [facility]</td><td>01/23/2016</td><td><content 10:2 3:54 AM [facility]) ID="rpahfcnkoQbzzxommxJM41-8">Acquired EDT MetatarsalAcquired Deformity of Toe - Hammer Toe Deform ity of Toe - Left</content>, <content Hammer Toe ID="zavndnoneCjnfeszzjCK35-0">Subluxation LeftAcquired Foot Joint Metatarsal</content>, <content Deformity of Toe - ID="mvbailcbzMbdduxdsgCJ04-4">Xerosis Hammer Toe Cutis</content>, <content RightXeros is ID="zkzhessdeGwzxiibirBW47-7">Acquired CutisSubluxation Deformity of Toe - Hammer Toe Foot J oint Right</content></td> MetatarsalAcqui red Deformity of Toe - Hammer Toe LeftAcquired Deformity of Toe - Hammer Toe RightXerosis CutisSubluxation Foot Joint Metatarsal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Acquired Deformity of Toe - Hammer Toe RightXerosis CutisSubluxation Foot Joint Metatarsal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Acquired Deformity of Toe - Hammer Toe RightXerosis CutisSubluxation Foot Joint Metatarsal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 Acquired Deformity of Toe - Hammer Toe R ight Xerosis Cutis Subluxation Foot Joint Metatarsal Acquired Deformity of Toe - Hammer Toe L eft Acquired Deformity of Toe - Hammer Toe R ight Xerosis Cutis Subluxation Foot Joint Metatarsal Acquired Deformity of Toe - Hammer Toe L eft Acquired Deformity of Toe - Hammer Toe R ight Xerosis Cutis Subluxation Foot Joint Metatarsal Acquired Deformity of Toe - Hammer Toe L eft Acquired Deformity of Toe - Hammer Toe R ight Xerosis Cutis Subluxation Foot Joint Metatarsal Acquired Deformity of Toe - Hammer Toe L eft Acquired Deformity of Toe - Hammer Toe R ight Xerosis Cutis Subluxation Foot Joint Metatarsal Acquired Deformity of Toe - Hammer Toe L eft Outpatient<td Attender: Mahogany 12/04/2015 JHON ID="ls[id number]">*No [facility] 12:28:00 PM ([place] Show*</td><td>ELIZABETH JODY VERA MD [place] HERMILO Stark MD</td><td>[facility] 12/04/2015 Health Center</td><td>12/04/2015</td><td></td> 11:59:0 0 PM Center) EDT Outpatient<td Attender: [facility] 11/23/2015 Guillermina [place] ID="ar[id number]">OFFICE [facility] 04:30: 00 PM u ([place] VISIT</td><td>ANYI ROMERO MD [place] HERMILO Stark MD</td><td>[facility] 11/23/2015 [facility]</td><td>11/23/2015</td><td><mele 07:16: 41 PM i Center) nt ID="ockatddpdGdnythxhgJJ12-9">Vitamin EDT t D Deficiency</content>, <content i ID="ypafudygsVplrvfyruGN10-8">Glucose s Intolerance</content>, <content L ID="iwnysciowQncamkqpxUU94-6">Bursitis e Left Shoulder</content></td> f t S h o u l d e r B u r s i t i s L e f t S h o u l d e r B u r s i t i s L e f t S h o u l d e r B u r s i t i s L e f t S h o u l d e r B u r s i t i s L e f t S h o u l d e r G l u c o s e I n t o l e r a n c e V i t a m i n D D e f i c i e n c y G l u c o s e I n t o l e r a n c e V i t a m i n D D e f i c i e n c y G l u c o s e I n t o l e r a n c e V i t a m i n D D e f i c i e n c y G l u c o s e I n t o l e r a n c e V i t a m i n D D e f i c i e n c y G l u c o s e I n t o l e r a n c e V i t a m i n D D e f i c i e n c y Bursitis Left Shoulder Bursitis Left Shoulder Bursitis Left Shoulder Bursitis Left Shoulder Bursitis Left Shoulder Glucose Intolerance Vitamin D Deficiency Glucose Intolerance Vitamin D Deficiency Glucose Intolerance Vitamin D Deficiency Glucose Intolerance Vitamin D Deficiency Glucose Intolerance Vitamin D Deficiency Outpatient<td [facility] 11/23/2015 [place] ID="ep[id number]">EKG</td><td> Health 04:00:00 PM ([place] </td><td>[facility] EDT - [facility]</td><td>11/23/2015</td><td></td> [address] [place] [address] 11:59:00 PM Center) EDT Outpatient<td At [facility] 11/21/2015 D [place] ID="sufamlmsxWyaqMytalourlxvHB03">OFFICE te Health 10:45: 00 AM e (Eva Wolf VISIT</td><td>MINA URBINADHURY az Center EDT - r Neighborhood DPM</td><td>[facility] 11/21/2015 [facility]</td><td>11/21/2015</td><td><content : 12:1 4:20 PM a [place]) ID="roweaufciStwlqsjcwWL47-8">Bursitis Heel MO EDT t Right</content>, <content LEVINE o ID="xaqdonzwkCiliagzekFE10-3">Bursitis Heel MM p Left</content>, <content ED h ID="thzaqfezbPzboqszrgRK35-6">Ingrowing CH y Toenail</content>, <content OW t ID="uxhrbtvdgQtlupjgbuKZ11-1">Dermatophytosis DH o Nails</content></td> UR s Y i DP s M N a i l s I n g r o w i n g T o e n a i l B u r s i t i s H e e l L e f t B u r s i t i s H e e l R i g h t D e r m a t o p h y t o s i s N a i l s I n g r o w i n g T o e n a i l B u r s i t i s H e e l L e f t B u r s i t i s H e e l R i g h t D e r m a t o p h y t o s i s N a i l s I n g r o w i n g T o e n a i l B u r s i t i s H e e l L e f t B u r s i t i s H e e l R i g h t D e r m a t o p h y t o s i s N a i l s I n g r o w i n g T o e n a i l B u r s i t i s H e e l L e f t B u r s i t i s H e e l R i g h t D e r m a t o p h y t o s i s N a i l s I n g r o w i n g T o e n a i l B u r s i t i s H e e l L e f t B u r s i t i s H e e l R i g h t Dermatophytosis Nails Ingrowing Toenail Bursitis Heel Left Bursitis Heel Right Dermatophytosis Nails Ingrowing Toenail Bursitis Heel Left Bursitis Heel Right Dermatophytosis Nails Ingrowing Toenail Bursitis Heel Left Bursitis Heel Right Dermatophytosis Nails Ingrowing Toenail Bursitis Heel Left Bursitis Heel Right Dermatophytosis Nails Ingrowing Toenail Bursitis Heel Left Bursitis Heel Right Outpatient<td Attender: [facility] 04/13/2015 JHON ID="jkafyozakKtzqZcpnomzexnyGI27">INITIAL [facility] 10:45 :00 AM (Eva Wolf VISIT</td><td>[facility] Center EST - Neighborhood DP</td><td>[facility] 04/13/2015 [facility] Center</td><td>04/13/2015</td><td></td> 11:34:5 3 AM Center) EST Outpatient<td Attender: [facility] 04/13/2015 R JHON ID="ro[id number]">[facility] 09:0 0:00 AM o (Eva Wolf PHYSICAL EXAM</td><td>[facility] Center EST - u 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</td><td>[facility] 04/13/2015 [facility]</td><td>04/13/2015</td><td><content 12:2 0:13 PM i Center) ID="hlzvgwhdcBahmfqxhnKZ70-2">Overweight</ EST n content>, <content e ID="izddzsvqbWztygywkmTS36-7">Routine H History and Physical Senior Citizen (65-80 i Yrs)</content>, <content s ID="jadzeropeZumlqvczqZO62-5">Routine t History and Physical Adult (18 - 64 o Yrs)</content></td> r y a n d P h y s i c a l A d u l t ( 1 8 - 6 4 Y r s ) R o u t i n e H i s t o r y a n d P h y s i c a l S e n i o r C i t i z e n ( 6 5 - 8 0 Y r s ) O v e r w e i g h t R o u t i n e H i s t o r y a n d P h y s i c a l A d u l t ( 1 8 - 6 4 Y r s ) R o u t i n e H i s t o r y a n d P h y s i c a l S e n i o r C i t i z e n ( 6 5 - 8 0 Y r s ) O v e r w e i g h t R o u t i n e H i s t o r y a n d P h y s i c a l A d u l t ( 1 8 - 6 4 Y r s ) R o u t i n e H i s t o r y a n d P h y s i c a l S e n i o r C i t i z e n ( 6 5 - 8 0 Y r s ) O v e r w e i g h t R o u t i n e H i s t o r y a n d P h y s i c a l A d u l t ( 1 8 - 6 4 Y r s ) R o u t i n e H i s t o r y a n d P h y s i c a l S e n i o r C i t i z e n ( 6 5 - 8 0 Y r s ) O v e r w e i g h t R o u t i n e H i s t o r y a n d P h y s i c a l A d u l t ( 1 8 - 6 4 Y r s ) R o u t i n e H i s t o r y a n d P h y s i c a l S e n i o r C i t i z e n ( 6 5 - 8 0 Y r s ) O v e r w e i g h t Routine History and Physical Adult (18 - 64 Yrs) Routine History and Physical Senior Citi robbi (65-80 Yrs) Overweight Routine History and Physical Adult (18 - 64 Yrs) Routine History and Physical Senior Citi robbi (65-80 Yrs) Overweight Routine History and Physical Adult (18 - 64 Yrs) Routine History and Physical Senior Citi robbi (65-80 Yrs) Overweight Routine History and Physical Adult (18 - 64 Yrs) Routine History and Physical Senior Citi robbi (65-80 Yrs) Overweight Routine History and Physical Adult (18 - 64 Yrs) Routine History and Physical Senior Citi robbi (65-80 Yrs) Overweight Outpatient<td Attender: [facility] 02/28/2015 [place] ID="bamsyjxozDowcSwlzswkoflyXQ63">*No [facility] 04:58:00 PM ([place] Show*</td><td>[facility] EST - [place] HYDE</td><td>[facility] 02/28/2015 Health Center</td><td>02/28/2015</td><td></td> 11:59:0 0 PM [place]) EST Outpatient<td Attender: [facility] 11/25/2014 SE[place] ID="kyqsjleezFsqpOnhmowjvjeaFK98">*No [facility] 02:50:00 PM ([place] Show*</td><td>[facility] EDT - [place] HYDE</td><td>Mahogany Rahman MD 11/25/2014 Health Center</td><td>11/25/2014</td><td></td> 11:59:0 0 PM Center) EDT Outpatient<td Attender: [facility] 11/14/2014 JHON ID="rv[id number]">[Patie [facility] 09:24: 00 AM (Eva Wolf nt Encounter]</td><td>[facility] EDT - Neighborhood </td><td>[facility] [place] HYDE 11/14/2014 Health Center</td><td>11/14/2014</td><td></td> 11:59:0 0 PM Center) EDT Outpatient<td Attender: [facility] 09/01/2014 Samantha FERREIRA ID="gcrheszkdHgonXzwrqfsdnxcWN52">Follow [facility] 02:45: 00 PM i (Eva Morales</td><td>[facility]ISELDA [facility] EDT - fernando Stark MD</td><td>[facility] 09/01/2014 a Health Center</td><td>09/01/2014</td><td><mele 03:20: 45 PM [facility]) nt ID="[id number]">Vitamin EDT i D Deficiency</content></td> n D D e f i c i e n c y V i t a m i n D D e f i c i e n c y V i t a m i n D D e f i c i e n c y V i t a m i n D D e f i c i e n c y V i t a m i n D D e f i c i e n c y Vitamin D Deficiency Vitamin D Deficiency Vitamin D Deficiency Vitamin D Deficiency Vitamin D Deficiency Outpatient<td Attender: 08/12/2014 JHON ID="[id number]">*[facility] 09:57: 00 AM (Eva Wolf Update*</td><td>GRISELDA JOEL EDT - [place] [facility]</td><td> 08/12/2014 Health </td><td>08/12/2014</td><td></td> 11:59:00 PM Center) EDT Outpatient<td Attender: Thomas 07/14/2014 [place] FERREIRA ID="[id number]">Follow GRISELDA spann 09:00: 00 AM claude (Eva Morales</td><td>[facility]ELDA JOEL [facility] EDT - milla Stark MD</td><td>[facility] 07/14/2014 [facility]</td><td>07/14/2014</td><td><joe Sky 10:43 :58 AM [facility] Center) t r EDT sis ID="[id number]">Hyperlipide Toena cristhian</content>, <content ilsBr ID="[id number]">Odontologic onchi Disorders</content>, <content tisOd ID="[id number]">Bronchitis< ontol /content>, <content ogic ID="[id number]">Dermatophyt Disor osis Onychomycosis dersD Toenails</content></td> ermat ophyt osis Onych omyco sis Toena ilsBr onchi tisOd ontol ogic Disor dersD ermat ophyt osis Onych omyco sis Toena ilsBr onchi tisOd ontol ogic Disor dersD ermat ophyt osis Onych omyco sis Toena ilsBr onchi tisOd ontol ogic Disor dersD ermat ophyt osis Onych omyco sis Toena ilsBr onchi tisOd ontol ogic Disor dersH yperl ipide miaHy perli pidem iaHyp erlip idemi aHype rlipi demia Hyper lipid emia Dermatophytosis Onychomycosis Toenails Bronchitis Odontologic Disorders Dermatophytosis Onychomycosis Toenails Bronchitis Odontologic Disorders Dermatophytosis Onychomycosis Toenails Bronchitis Odontologic Disorders Dermatophytosis Onychomycosis Toenails Bronchitis Odontologic Disorders Dermatophytosis Onychomycosis Toenails Bronchitis Odontologic Disorders Hyperlipidemia Hyperlipidemia Hyperlipidemia Hyperlipidemia Hyperlipidemia Outpatient<td Attender: [facility] 04/12/2014 LaryngitisPharyngitis [place] ID="[id number]">WALKINS</td><td>GRISELDA VILLALOBOS [facility] 11:00:00 AM AcuteUpper Respiratory ([place] JO[place]</td><td>[facility] EST - InfectionLaryngitisPharyngitis [facility]</td><td>04/12/2014</td><td><content 04/12/2014 AcuteUpper Respiratory Health ID="[id number]">Upper Respiratory 02:33:55 PM InfectionLaryngitisPharyngitis Center) Infection</content>, <content EST AcuteU pper Respiratory ID="[id number]">Pharyngitis InfectionLaryngitisPharyngitis Acute</content>, <content AcuteUpper Respiratory ID="[id number]">Laryngitis</content></td> InfectionLaryngitisPharyngitis AcuteUpper Respiratory Infection Laryngitis Pharyngitis Acute Upper Respiratory Infection Laryngitis Pharyngitis Acute Upper Respiratory Infection Laryngitis Pharyngitis Acute Upper Respiratory Infection Laryngitis Pharyngitis Acute Upper Respiratory Infection Laryngitis Pharyngitis Acute Upper Respiratory Infection Outpatient<td ID="[id number]">Results Attender : [facility] 01/11/2014 Vitamin D DeficiencyVitamin D DeficiencyVitamin D [facility] Only</td><td>GRISELDA JOEL MD</td><td>[facility] 01:06:00 PM DeficiencyVitamin D DeficiencyVitamin D ([facility]</td><td>01/11/2014</td><td><content MARYCRUZ [place] er EDT - DeficiencyNicotine DependenceNicotine Neighborhood ID="[id number]">Hyperlipidemia</content>, 01/11/2014 [facility]ependenceNicotine [facility] <content ID="[id number]">Vitamin D 03:12:56 PM DependenceNicotine [place]) Deficiency</content>, <content EDT DependenceHyperlipidemiaHyperlipidemiaHyperlipidemiaH ID="[id number]">Nicotine yperlipidemiaHyperlipidemia Dependence</content></td> Vitamin D Deficiency Vitamin D Deficiency Vitamin D Deficiency Vitamin D Deficiency Vitamin D Deficiency Nicotine Dependence Nicotine Dependence Nicotine Dependence Nicotine Dependence Nicotine Dependence Hyperlipidemia Hyperlipidemia Hyperlipidemia Hyperlipidemia Hyperlipidemia Outpatient<td Attender: 12/31/2013 [place] ID="[id number]">*[facility] 02:02: 00 PM ([place] Update*</td><td>GRISELDA JOEL EDT - Neighborhood </td><td> 12/31/2013 Health </td><td>12/31/2013</td><td></td> 11:59:00 PM Center) EDT Outpatient<td Attender: Thomas 12/27/2013 [place] ID="[id number]">*No HEATHER chin 05:26:00 PM ([place] Show*</td><td>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 10/19/2013 [facility]</td><td>10/19/2013</td><td><[facility] 11:23 [facility]00 AM Vitam Center) t ID="[id number]">Vitamin D r EDT in D Deficiency</content>, <content Defic ID="[id number]">Hyperlipide iency cristhian</content></td> Vitam in D Defic iency Vitam in D Defic iency Vitam in D Defic iency Hyper lipid emiaH yperl ipide miaHy perli pidem iaHyp erlip idemi aHype rlipi demia Vitamin D Deficiency Vitamin D Deficiency Vitamin D Deficiency Vitamin D Deficiency Vitamin D Deficiency Hyperlipidemia Hyperlipidemia Hyperlipidemia Hyperlipidemia Hyperlipidemia Outpatient<td Attender: [facility] 10/08/2013 Routine [place] ID="[id number]">OFFICE [facility] 09:24: 00 AM Gynecological (Eva Wolf VISIT</td><td>[facility] DO Center EDT - Exam with Neighborhood DO</td><td>[facility] 10/08/2013 [facility]</td><td>10/08/2013</td><td><content 11:0 2:07 AM SmearRoutine [place]) ID="[id number]">Routine EDT Gynecological Gynecological Exam with Cervical Pap Exam with Smear</content></td> Cervical Pap SmearRoutine Gynecological Exam with Cervical Pap SmearRoutine Gynecological Exam with Cervical Pap SmearRoutine Gynecological Exam with Cervical Pap Smear Routine Gynecological Exam with Cervical Pap Smear Routine Gynecological Exam with Cervical Pap Smear Routine Gynecological Exam with Cervical Pap Smear Routine Gynecological Exam with Cervical Pap Smear Routine Gynecological Exam with Cervical Pap Smear Outpatient<td ID="[id number]">Follow Attender: [facility] 09/28/2013 HyperlipidemiaHyperlipidemiaHyperlipidemiaHyperlipidemiaHyperlipidemia [facility]</td><td>GRISELDA JOEL MD</td><td>[facility] 11:14:00 AM ([facility]</td><td>09/28/2013</td><td><content [facility] EDT - Neighborhood ID="[id number]">Hyperlipidemia</content></td> 09/28/2013 Health 12:10:32 PM [place]) EDT Hyperlipidemia Hyperlipidemia Hyperlipidemia Hyperlipidemia Hyperlipidemia Outpatient<td Attender: [facility] 05/20/2013 [facility] ID="[id number]">[place]</td><td>[facility] 11:14:00 AM Respiratory (Eva JOEL MD</td><td>[facility] EST - InfectionUpper [facility]</td><td>05/20/2013</td><td><content 04/25 Respiratory Health ID="[id number]">Upper Respiratory 04:53:18 [facility] Infection</content></td> EST Respiratory InfectionUpper Respiratory InfectionUpper Respiratory Infection Upper Respiratory Infection Upper Respiratory Infection Upper Respiratory Infection Upper Respiratory Infection Upper Respiratory Infection Outpatient<td Attender: [facility] 03/01/2013 [place] ID="[id number]">*[facility] 02:35:00 PM ([place] [facility]*</td><td>GRISELDA [facility] EST - [place]DE</td><td>[facility] 03/01/2013 Health Center</td><td>03/01/2013</td><td></td> 11:59:0 0 PM [place]) EST Outpatient<td Attender: [facility] 02/06/2013 [place] ID="[id number]">[facility] 10:57: 00 AM ([facility]</td><td>[facility] EST - Neighborhood LATHE HAND</td><td>[facility] 02/06/2013 Health Center</td><td>02/06/2013</td><td></td> 12:57:2 0 PM [place]) EST Outpatient<td Attender: [facility] 01/27/2013 E [place] ID="[id number]">Follow [facility] 12:13: 00 PM c (Eva Wolf </td><td>[facility] JAYLEN - jovani Stark MD</td><td>[facility] 01/27/2013 e [facility] Center</td><td>01/27/2013</td><td><mele 02:00: 31 PM [facility]) nt EST a ID="[id number]">Dermatophy D tosis Nails Onychomycosis</content>, e <content r ID="[id number]">Hyperlipid m emia</content>, <content a ID="regimmklgZtcbvpxerIJ73-5">Eczema</co t ntent></td> o p h y t o s i s N a i l s O n y c h o m y c o s i s E c z e m a D e r m a t o p h y t o s i s N a i l s O n y c h o m y c o s i s E c z e m a D e r m a t o p h y t o s i s N a i l s O n y c h o m y c o s i s E c z e m a D e r m a t o p h y t o s i s N a i l s O n y c h o m y c o s i s E c z e m a D e r m a t o p h y t o s i s N a i l s O n y c h o m y c o s i s H y p e r l i p i d e m i a H y p e r l i p i d e m i a H y p e r l i p i d e m i a H y p e r l i p i d e m i a H y p e r l i p i d e m i a Eczema Dermatophytosis Nails Onychomycosis Eczema Dermatophytosis Nails Onychomycosis Eczema Dermatophytosis Nails Onychomycosis Eczema Dermatophytosis Nails Onychomycosis Eczema Dermatophytosis Nails Onychomycosis Hyperlipidemia Hyperlipidemia Hyperlipidemia Hyperlipidemia Hyperlipidemia Outpatient<td Attender: [facility] 01/07/2013 Abnormal Weight [facility] ID="[id number]">Follow [facility] 10:10:00 AM LossCariesFatigueAbnormal (Eav Wolf </td><td>[facility] EDT - Weight [facility]</td><td>[facility]Ab[facility]</td><td>01/07/2013</td><td><content 11:5 6:52 AM Weight [place]) ID="[id number]">Fatigue</content>, EDT LossCariesFatigueAbnormal <content Weight ID="[id number]">Caries</content>, LossCariesFatigueAbnormal <content ID="qhqbfadavIknwlfyxrVP95-1">Abnormal Weight LossCariesFatigue Weight Loss</content></td> Abnormal Weight Loss Caries Fatigue Abnormal Weight Loss Caries Fatigue Abnormal Weight Loss Caries Fatigue Abnormal Weight Loss Caries Fatigue Abnormal Weight Loss Caries Fatigue Outpatient<td [facility] 12/21/2012 [place] ID="[id number]">[place]</td><td> Health 09:26:00 AM (Eva Wolf </td><td>[facility] EDT - Neighborhood Center</td><td>12/21/2012</td><td></td> 013 Health 11:59:00 PM Center) EDT Outpatient<td A [facility] 05/06/2012 T [place] ID="[id number]">WALK[place]</td><td>R t Health 10:15:00 AM e ([place] SEVERINO JOEL MD</td><td>[facility] EST - n [facility]</td><td>05/06/2012</td><td><content e 04/24 d Health ID="[id number]">Loose Body in n 11: 56:14 AM o Center) Knee</content>, <content d EST n ID="[id number]">Osteoarthritis e i Knee</content>, <content r t ID="mcukjeerxSekizbdgxLL22-3">Tendonitis : i Patellar</content></td> R s O P B a E t R e T l T l H a O r M O P s S t O e N o M a D r t h r i t i s K n e e L o o s e B o d y i n K n e e T e n d o n i t i s P a t e l l a r O s t e o a r t h r i t i s K n e e L o o s e B o d y i n K n e e T e n d o n i t i s P a t e l l a r O s t e o a r t h r i t i s K n e e L o o s e B o d y i n K n e e T e n d o n i t i s P a t e l l a r O s t e o a r t h r i t i s K n e e L o o s e B o d y i n K n e e T e n d o n i t i s P a t e l l a r O s t e o a r t h r i t i s K n e e L o o s e B o d y i n K n e e Tendonitis Patellar Osteoarthritis Knee Loose Body in Knee Tendonitis Patellar Osteoarthritis Knee Loose Body in Knee Tendonitis Patellar Osteoarthritis Knee Loose Body in Knee Tendonitis Patellar Osteoarthritis Knee Loose Body in Knee Tendonitis Patellar Osteoarthritis Knee Loose Body in Knee Outpatient<td Attender: [facility] 04/03/2012 SinusitisSinusitisSinusitisSinusitisSinusitis [place] ID="yz[id number]">[place]</td><td>[facility] 11:59:00 AM (Eva SANCHEZ MD</td><td>[facility] EST - Neighborhood Center</td><td>04/03/2012</td><td><content 03/24 Health ID="[id number]">Sinusitis</content></td> 12:47:57 PM Center) EST Sinusitis Sinusitis Sinusitis Sinusitis Sinusitis Outpatient<td [facility] 04/03/2012 [place] ID="ny[id number]">Follow Health 11:18: 00 AM ([place] </td><td> [place] EST - Neighborhood </td><td>[facility] 04/03/2012 Health Center</td><td>04/03/2012</td><td></td> 11:59:0 0 PM Center) EST Outpatient<td Atten [facility] 03/03/2012 [place] ID="el[id number]">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: Health 11:11:00 AM ([place] [facility]</td><td>Sean HAMMONDS [place] EST Neighborhood </td><td>[facility] 03/03/2012 Health Center</td><td>03/03/2012</td><td></td> [facility] 11:59:0 0 PM Center) EST Outpatient<td Atten [facility] 02/25/2012 Sinu [place] ID="[id number]">Follow adarsh: Health 10:05: 00 AM siti ([place] </td><td>Sean HAMMONDS [place] EST [facility] </td><td>[facility] 02/25/2012 us Health Center</td><td>02/25/2012</td><td><joe Sanchez 02:04 :06 PM isSi Center) t EST nusi ID="iploryxzjFrfnzvtlwUU06-1">Sinusitis</ tisS content>, <content inus ID="[id number]">Sinusitis</ itis content>, <content Sinu ID="dbrihqivqYsiwgsrjrFO70-2">Sinusitis</ siti content></td> sSin usit isSi nusi tisS inus itis Sinu siti sSin usit isSi nusi tisS inus itis Sinu siti sSin usit isSi nusi tis Sinusitis Sinusitis Sinusitis Sinusitis Sinusitis Sinusitis Sinusitis Sinusitis Sinusitis Sinusitis Sinusitis Sinusitis Sinusitis Sinusitis Sinusitis Outpatient<td Attender: [facility] 02/17/2012 [place] ID="[id number]">[facility] 10:44: 00 AM (Eva Wolf VISIT</td><td>BELLFLOWER JODY VERA MD Center EST - Neighborhood </td><td>[facility] 02/17/2012 Health Center</td><td>02/17/2012</td><td></td> 11:59:0 0 PM Center) EST Outpatient<td Attender: [facility] 02/03/2012 [place] ID="pf[id number]">[[facility] 10:22 :00 AM ([place] t Encounter]</td><td>Tati HAMMONDSHelen [facility] EST - Neighborhood </td><td>[facility] 02/03/2012 Health Center</td><td>02/03/2012</td><td></td> 11:59:0 0 PM Center) EST Outpatient<td Attender: [facility] 06/24/2011 JHON ID="[id number]">[facility] 12:00 :00 PM ([place] E PHYSICAL EXAM</td><td>Laura HAMMONDS [place] EDT - Neighborhood </td><td>[facility] 06/24/2011 Health Center</td><td>06/24/2011</td><td></td> 11:59:0 0 PM Center) EDT Outpatient<td Attender: [facility] 06/24/2011 JHON ID="id[id number]">DENTAL [facility] 10:00: 00 AM (Eva Wolf INITIAL VISIT</td><td>WILLIAM JACKSON JACKSON DDS Center EDT - Neighborhood DDS</td><td>[facility] 06/24/2011 Health Center</td><td>06/24/2011</td><td></td> 11:59:0 0 PM Center) EDT Outpatient<td [facility] 05/16/2011 JHON ID="fu[id number]">[facility] 11:15 :00 AM ([place] </td><td> Center EST - Neighborhood </td><td>[facility] 05/16/2011 Health Center</td><td>05/16/2011</td><td></td> 11:59:0 0 PM Center) EST Immunizations Vaccine Date Status Description Data Source(s) IIV3. This 04/29/2017 completed Influenza 2 04/29/2017 Left Active [facility] is one of 12:05:00 PM Deltoid (Administered) Neighborhood ([facility] Neighborhood replacing [address] ) which is being retired. IIV3. This 01/11/2014 completed Influenza 1 01/11/2014 Left Arm Active [facility] is one of 03:08:00 PM (Administered) [facility] ([facility] Neighborhood replacing [address] ) which is being retired. Medications Medication Brand Start Product Dose Route Administrative Pharmacy St at Indications Reaction Description Data Name Date Form Instructions Instructions Source(s) Calcium + Calciu 08/24/ UNIT 1 active Calcium + D3 [place] D3 m + D3 2019 ([place] 600-800MG-U 600-80 12:00: [place] on NIT Oral 0MG-UN 00 AM Neighbor ho Tablet IT EDT Health Oral Center) Tablet Naproxen Naprox 05/20/ UNIT 1 active Naproxen G REENWAY 500 MG Oral en 2018 ([place] Tablet 500MG 12:00: [place] Naproxen Oral 00 AM Neighbor[place] 500MG Oral Tablet EST od [facility] Tablet Center) Omeprazole Omepra 05/20/ UNIT 1 active Omeprazo le JHON 20MG Oral zole 2018 ([place] Tablet 20MG 12:00: Luciano Delayed Oral 00 AM [facility] Release Tablet EST od Health [facility] ) ing d Releas e Disint egrati ng Zetia 10MG Zetia 05/20/ UNIT 1 active Zetia GRE ENWAY Oral Tablet 10MG 2018 ([place] Oral 12:00: [place]iano Tablet 00 AM Neighbor EST od Health Center) Zetia 10MG Zetia 10/30/ UNIT 1 suspend Zetia GR EENWAY Oral Tablet 10MG 2018 ed ([place] Oral 12:00: [place] Tablet 00 AM [facility] EDT od Health Center) Cholecalcif Vitami UNIT 1 active Vitamin D3 JHON oz 1000 n D3 2018 ([place] UNT Oral 1000UN 12:00: [place]iano Tablet IT 00 AM [facility] Vitamin D3 Oral EDT od Health 1000UNIT Tablet Center) Oral Tablet Tamiflu Tamifl 06/16/ UNIT 1 suspend Tamiflu GR EENWAY 75MG Oral u 75MG 2018 ed ([place] Capsule Oral 12:00: [place] Capsul 00 AM [place] e EDT od Health Center) Cholecalcif Vitami 04/24/ UNIT 1 suspend Vitami n D3 JHON oz 1000 n D3 2018 ed ([place] UNT Oral 1000UN 12:00: [place]iano Tablet IT 00 AM [facility] Vitamin D3 Oral EST od Health 1000UNIT Tablet Center) Oral Tablet atorvastati Atorva 04/24/ UNIT 1 suspend Atorva statin JHON n 20 MG statin 2018 ed Calcium ([place] Oral Tablet Calciu 12:00: [place] on Atorvastati m 20MG 00 AM Neigh borho n Calcium Oral EST od Health 20MG Oral Tablet Center) Tablet Bacitracin Bacitr 02/04/ APPLICAT 1 active Baci tracin JHON 0.5 UNT/MG acin 2017 ION UNIT (Moun t Ophthalmic 500UNI 12:00: Verno n Ointment T/GM 00 AM [facility] Bacitracin Ophtha EST od Heal th 500UNIT/GM lmic Center) Ophthalmic Ointme Ointment nt atorvastati Atorva 12/30/ UNIT 1 suspend Atorva statin JHON n 20 MG statin 2017 ed Calcium ([place] Oral Tablet Calciu 12:00: [place] on Atorvastati m 20MG 00 AM Neigh borho n Calcium Oral EDT od Health 20MG Oral Tablet Center) Tablet EQL Vitamin EQL 12/30/ UNIT 1 suspend EQL Delfina min JHON D3 5000UNIT Vitami 2016 ed D3 ([place] Oral n D3 12:00: [place] Capsule 5000UN 00 AM Neighborh o IT EDT od Health Oral Center) Capsul e Simvastatin Simvas 12/30/ UNIT 1 suspend Simvas tatin JHON 20 MG Oral tatin 2016 ed ([place] Tablet 20MG 12:00: [place] Simvastatin Oral 00 AM Neighbo rho 20MG Oral Tablet EDT od Healt h Tablet Center) Maxitrol Maxitr 03/05/ APPLICAT 1 active Poly-D ex JHON 3.5-72570-3 ol 2015 ION UNIT (Lia nt .1 Ointment 3.5-10 12:00: [place] 000-0. 00 AM Neighbor[place] 1 EST od Health Ointme Center) nt atorvastati Atorva 01/22/ UNIT 1 suspend Atorva statin JHON n 10 MG statin 2015 ed Calcium ([place] Oral Tablet Calciu 12:00: [place] Atorvastati m 10 00 AM Neighbo rho n Calcium MG EDT od Health 10 MG Tablet Center) Tablet SM Vitamin SM 01/22/ UNIT 1 suspend SM Vitami n JHON D3 1000 Vitami 2015 ed D3 ([place] UNIT Tablet n D3 12:00: Luciano 1000 00 AM Neighborho UNIT EDT od Health Tablet Center) Crestor 5 Cresto 11/22/ UNIT 1 suspend Crestor JHON MG Tablet r 5 MG 2015 ed ([place] Tablet 12:00: Luciano 00 AM [place] EDT od Health Center) Naproxen Naprox 11/22/ UNIT 1 suspend Naproxen JHON 375 MG Oral en 375 2015 ed ([place] Tablet MG 12:00: [place] Naproxen Tablet 00 AM Neighbor ho 375 MG EDT od Health Tablet Center) Lipitor 10 Lipito 11/22/ UNIT 1 suspend Lipitor JHON MG Tablet r 10 2015 ed ([place] MG 12:00: [place] Tablet 00 AM [place]ighbor[place] EDT od Health Center) Cholecalcif Vitami 09/01/ UNIT suspend Vitami n D3 J[place] 00265 n D3 2014 ed ([place] UNT Oral 1.25 12:00: [place] Capsule MG(500 00 AM Neighborh o Vitamin D3 00 UT) EDT od Heal th 1.25 OR Center) MG(32091 CAPS UT) OR CAPS Tessalon Tessal 07/14/ UNIT 1 suspend Tessalon JHON Perles on 2014 ed Perles ([facility] 100MG OR Perles 12:00: [place] CAPS 100MG 00 AM [facility] OR [facility] CAPS Center) Zithromax Zithro 04/12/ UNIT suspend Zithroma x JHON Z-Tico 250MG max 2014 ed ([facility] OR TABS Z-Tico 12:00: [place] 250MG 00 AM [facility] OR [facility] TABS Center) Promethazin Promet 04/12/ CAPFUL 1 suspend Prom ethazine JHON e hazine 2014 DOSING ed VC/Codeine (Moun t VC/Codeine VC/Cod 12:00: UNIT Verno n 6.25-5-10MG eine 00 AM Neighbo rho /5ML OR 6.25-5 EST Health SYRP -10MG/ Center) 5ML OR SYRP Lipitor Lipito 01/11/ UNIT 1 suspend Lipitor GR EENWAY 10MG OR r 10MG 2013 ed ([facility] TABS OR 12:00: [place] TABS 00 AM [facility]) Lipitor Lipito 10/ UNIT 1 suspend Lipitor GR EENWAY 10MG OR r 10MG 2013 ed ([facility] TABS OR 12:00: [place] TABS 00 AM [facility]) Lipitor Lipito 10/19/ UNIT 1 suspend Lipitor GR EENWAY 10MG OR r 10MG 2013 ed ([facility] TABS OR 12:00: [place] TABS 00 AM [facility]) Cholecalcif Vitami 10/19/ UNIT suspend [place]ami n D[place] 8[address]95 n D3 2013 ed ([facility] UNT Oral 1.25 12:00: [place] Capsule MG(500 00 AM Neighborh o Vitamin D3 00 UT) EDT od Heal th 1.25 OR Center) MG(33530 CAPS UT) OR CAPS HYDROcodone HYDROc 05/20/ SCOOPFUL 1 suspend HY DROcodone JHON Bitartrate odone 2013 DOSING ed Bitartrate ([facility] SANDEEP Bitart 12:00: UNIT [place] rate 00 AM [facility] Ventolin Ventol 02/06/ INHALATI suspend Se dionna JHON HFA 108 (90 in HFA 2013 ON ed ([facility] Base)MCG/AC 108 12:00: DOSING [place] T IN AERS (90 00 AM UNIT Neighbor o Base)M EST od Health CG/ACT Center) IN AERS Triamcinolo Triamc 01/27/ APPLICAT 1 suspend Tr iamcinolon JHON ne inolon 2013 ION UNIT ed e Acetonide (M ount Acetonide 1 e 12:00: [place] MG/ML Aceton 00 AM [facility] Topical betty [facility] Lotion 0.1% Center) Triamcinolo EX ne LOTN Acetonide 0.1% EX LOTN LamISIL LamISI 01/27/ UNIT 1 suspend Lamisil GR EENWAY 250MG OR L 2013 ed ([facility] TABS 250MG 12:00: [place] OR 00 AM [facility] TABS [facility] Center) Crestor 5MG Cresto 01/27/ UNIT 1 suspend Cresto r JHON OR TABS r 5MG 2012 ed ([facility] OR 12:00: [place] TABS 00 AM [facility] Center) Oxycodone/A 12/24/ TABLET 1 complet Every 6 White cetaminophe 2013 {Caps ed Hours as Quin ins n (Percocet 12:00: ule} needed Hosp ital 5MG-325 Mg 00 AM Tablet*) 1 EDT Tab Tab, 1 Tab Oral Clindamycin 12/24/ CAPSULE 300 complet Three Times White Hcl 2013 mg ed A Day [place] (Cleocin 12:00: Hospital Capsule*) 00 AM 300 Mg EDT Capsule, 300 Mg Oral CeleBREX CeleBR 05/06/ UNIT 1 suspend Celebrex JHON 200MG OR EX 2013 ed ([facility] CAPS 200MG 12:00: [place] OR 00 AM [facility] Health Center) Propoxyphen TABLET 1 complet Whi te e {Caps ed [place] Napsylate/A ule} Hospital cetam (Darvocet-N 100*) 1 Tab Tab, 1 Tab G Tube Aspirin ENTERIC 81 mg complet Daily Whit e (Aspirin COATED ed [place] Enteric TABLET Hospital Coated*) 81 Mg Tabec, 81 Mg Oral Insurance Providers Payer name Policy type / Policy ID Covered Covered democrat's Policy Plan Coverage type democrat ID relationship to Slater Information slater DIEGO [employer]OSS [id number] SP [id number] SENIOR PLAN Medicare Part Individual 0 Self 0 A of Policy Jimmy AETNA OTHER [id number] PT [id number] MEDICARE [id number] PT [id number] A Medicare Part Medicare 0 Self 0 A of Primary [place] Medicare Part Medicare 0 Self 0 A of Primary [place] Medicare Part Medicare 0 Self 0 A of Primary [place] AETNA [facility] [id number] PT [id number] Nick Vision [id number] S [id number] MCRE MNGD Care [place] [id number] S [id number] Medicare Medicare-Blue [id number] S [id number] Cross/Blue Shield Medicare [id number] S [id number] A [facility]: [facility] GRIFFIN [id number] PT [id number] MEDICARE ADVANTAGE Medicare Part Medicare 0 Self 0 A of Primary [place] Problems, Conditions, and Diagnoses Code Display Name Description Problem Effective Data Source (s) Type Dates [id number] Synovial cyst of Synovial Cyst of Problem 12/31/19 17 JHON right popliteal Popliteal Space 12:00:00 AM ([place] space (disorder) Right [facility]) [id number] Acute meniscal Acute Meniscal Problem 12/30/2016 [place]EN[place] AY tear, medial Tear Medial 12:00:00 AM ([place] non (disorder) [facility]) [id number] Synovial cyst of Synovial Cyst of Problem 12/31/19 17 JHON right popliteal Popliteal Space 12:00:00 AM ([place] space (disorder) Right [facility]) [id number] Acute meniscal Acute Meniscal Problem 12/30/2016 [place]EN[place] AY tear, medial Tear Medial 12:00:00 AM ([place] non (disorder) [facility]) [id number] Synovial cyst of Synovial Cyst of Problem 12/31/19 17 JHON right popliteal Popliteal Space 12:00:00 AM ([place] space (disorder) Right [facility]) [id number] Acute meniscal Acute Meniscal Problem 12/30/2016 GREEN[place] AY tear, medial Tear Medial 12:00:00 AM ([place] (disorder) [facility]) [id number] Synovial cyst of Synovial Cyst of Problem 12/31/19 17 JHON right popliteal Popliteal Space 12:00:00 AM ([place] space (disorder) Right [facility]) 189345319 Acute meniscal Acute Meniscal Problem 12/30/2016 GREEN[place] AY tear, medial Tear Medial 12:00:00 AM ([place] (disorder) [facility]) [id number] Synovial cyst of Synovial Cyst of Problem 12/31/19 17 JHON right popliteal Popliteal Space 12:00:00 AM ([place] space (disorder) Right [facility]) [id number] Acute meniscal Acute Meniscal Problem 12/30/2016 [place] AY tear, medial Tear Medial 12:00:00 AM ([place] (disorder) [facility]) 85612544 Vitamin D Vitamin D Problem 04/13/2015 JHON deficiency Deficiency 12:00:00 AM ([place] (disorder) [facility]) [id number] 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 12:00:00 AM ([place] (disorder) [facility]) 85629743 Vitamin D Vitamin D Problem 04/13/2015 JHON deficiency Deficiency 12:00:00 AM ([place] (disorder) [facility]) 131880913 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 12:00:00 AM ([place] (disorder) [facility]) 11070627 Vitamin D Vitamin D Problem 04/13/2015 JHON deficiency Deficiency 12:00:00 AM ([place] (disorder) [facility]) 539479692 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 12:00:00 AM ([place] (disorder) [facility]) 92831044 Vitamin D Vitamin D Problem 04/13/2015 JHON deficiency Deficiency 12:00:00 AM ([place] (disorder) [facility]) 753508843 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 12:00:00 AM ([place] (disorder) [facility]) 84376297 Vitamin D Vitamin D Problem 04/13/2015 JHON deficiency Deficiency 12:00:00 AM ([place] (disorder) [facility]) 955438786 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 12:00:00 AM ([facility] Miguel Angel n (disorder) [facility]) 69836603 Nicotine Nicotine Problem 01/11/2014 JHON dependence Dependence 12:00:00 AM ([place] (disorder) EDT [facility] 07/14/2014 [facility]) 12:00:00 AM EDT 32871501 Nicotine Nicotine Problem 01/11/2014 JHON dependence Dependence 12:00:00 AM ([place] (disorder) EDT [facility] 07/14/2014 [facility]) 12:00:00 AM EDT 37886362 Nicotine Nicotine Problem 01/11/2014 JHON dependence Dependence 12:00:00 AM ([place] (disorder) [facility] 07/14/2014 [facility]) 12:00:00 AM EDT 92924573 Nicotine Nicotine Problem 01/11/2014 JHON dependence Dependence 12:00:00 AM ([place] (disorder) [facility] 07/14/2014 [facility]) 12:00:00 AM EDT 14228847 Nicotine Nicotine Problem 01/11/2014 JHON dependence Dependence 12:00:00 AM ([place] (disorder) [facility] 07/14/2014 [facility]) 12:00:00 AM EDT 85229059 Hyperlipidemia Hyperlipidemia Problem 04/03/2012 [place] AY (disorder) 12:00:00 AM ([facility]) 13093891 Hyperlipidemia Hyperlipidemia Problem 04/03/2012 [place] AY (disorder) 12:00:00 AM ([facility]) 12732168 Hyperlipidemia Hyperlipidemia Problem 04/03/2012 [place] AY (disorder) 12:00:00 AM ([facility]) 83751340 Hyperlipidemia Hyperlipidemia Problem 04/03/2012 [place] AY (disorder) 12:00:00 AM ([facility]) 53780554 Hyperlipidemia Hyperlipidemia Problem 04/03/2012 [place] AY (disorder) 12:00:00 AM ([facility]) 41579077 Sinusitis Sinusitis Problem 02/25/2012 JHON (disorder) 12:00:00 AM ([facility] 11/23/2015 [facility]) 12:00:00 AM EDT 61470204 Sinusitis Sinusitis Problem 02/25/2012 JHON (disorder) 12:00:00 AM ([place] EST - [facility] 11/23/2015 [facility]) 12:00:00 AM EDT [id number] Sinusitis Sinusitis Problem 02/25/2012 [place] (disorder) 12:00:00 AM ([facility] 11/23/2015 [facility]) 12:00:00 AM EDT 40541187 Sinusitis Sinusitis Problem 02/25/2012 [place] (disorder) 12:00:00 AM ([facility] 11/23/2015 [facility]) 12:00:00 AM EDT 88880981 Sinusitis Sinusitis Problem 02/25/2012 [place] (disorder) 12:00:00 AM ([facility] 11/23/2015 [facility]) 12:00:00 AM EDT Z12.31 Encounter for Z12.31 Diagnosis 02/09/2019 Atilio Flores s screening 02:06:00 PM Hospital mammogram for EST malignant neoplasm of breast E55.9 Vitamin D Vitamin D Diagnosis 05/26/2018 [place] deficiency, deficiency, 06:51:57 PM ([facility] unspecified unspecified EST [facility]) M25.511 Pain in right M25.511 Diagnosis 05/14/2018 Atilio Flores s shoulder 12:04:00 PM Hospital EST Surgeries/Procedures Procedure Description Date Indications Data Source(s) Federally qualified [facility] Visit Established 05/25/2019 [place] ([facility] (community health) Patient 12:00:00 [place]iano visit, established AM EST [place] patient; [facility] medically-necessary, edwk-xq-dank encounter (one-on-one) between an established patient and a fqhc practitioner during which time one or more fqhc services are rendered and includes a typical bundle of medicare-covered services that would be furnished automatic brine mixer operator to a patient receiving a fqhc visit Federally qualified [facility] Visit Established 02/04/2019 [place] ([facility] (community health) Patient 12:00:00 [place] visit, established AM EST [place] patient; [facility] medically-necessary, kjqz-wo-gewv encounter (one-on-one) between an established patient and a fqhc practitioner during which time one or more fqhc services are rendered and includes a typical bundle of medicare-covered services that would be furnished automatic brine mixer operator to a patient receiving a fqhc visit Ophthalmological Ophthalmological 01/19/2019 SURI Y ([facility] Exam [facility] Eval Services Exam & Eval 12:00:00 [place] Intermediate Estab Pt. Intermediate Estab Pt. [facility]) Federally qualified [facility] Visit Established 01/19/2019 [place] ([facility] (fqhc) Patient 12:00:00 Luciano visit, established AM EDT [place] patient; [facility] medically-necessary, jlgd-wb-jxvc encounter (one-on-one) between an established patient and a fqhc practitioner during which time one or more fqhc services are rendered and includes a typical bundle of medicare-covered services that would be furnished automatic brine mixer operator to a patient receiving a fqhc visit Ophthalmological Ophthalmological 01/19/2019 SURI Y ([place] [facility] Exam & Eval 12:00:00 [place] Intermediate Estab Pt. Intermediate Estab Pt. AM [facility]) Ophthalmological Ophthalmological 10/05/2018 SURI Y ([place] [facility] Exam [facility] Eval Services Exam & Eval 12:00:00 [place] Intermediate Estab Pt. Intermediate Estab Pt. AM [facility]) Federally qualified [facility] Visit Established 10/05/2018 [place] ([facility] (community health) Patient 12:00:00 Luciano visit, established AM EDT [place] patient; [facility] medically-necessary, lgfs-ic-ejzz encounter (one-on-one) between an established patient and a fqhc practitioner during which time one or more fqhc services are rendered and includes a typical bundle of medicare-covered services that would be furnished automatic brine mixer operator to a patient receiving a fq visit Ophthalmological Ophthalmological 10/05/2018 SURI Y ([place] [facility] Exam & Eval 12:00:00 [place] Intermediate Estab Pt. Intermediate Estab Pt. [facility]) HEMOGLOBIN A1C HEMOGLOBIN A1C 05/20/2018 [place] ([facility] 12:00:00 [facility]) URINALYSIS URINALYSIS 05/20/2018 [place] ([facility] 12:00:00 [facility]) VITAMIN D 25 - HYDROXY VITAMIN D 25 - 05/20/2018 G REENWAY ([facility] HYDROXY 12:00:00 [facility]) LIPID PANEL LIPID PANEL 05/20/2018 [place] ([facility] 12:00:00 [place] AM [facility]) METABOLIC PANEL METABOLIC PANEL 05/20/2018 [place] ([facility] COMPREHE COMPREHE 12:00:00 Luciano [facility]) Federally qualified [facility] Visit Established 05/20/2018 [place] ([facility] (fqhc) Patient 12:00:00 [place]iano visit, established AM EST [place] patient; [facility]) medically-necessary, pdky-zc-nbwp encounter (one-on-one) between an established patient and a community health practitioner during which time one or more community health services are rendered and includes a typical bundle of medicare-covered services that would be furnished automatic brine mixer operator to a patient receiving a community health visit XR shoulder right XR shoulder right 05/14/2018 [place] 12:00:00 Hospital AM EST Result: normal Result: normal 01/22/2018 [place] ([facility] Result: normal Result: normal 01/22/2018 [place] ([facility]unt 12:00:00 [facility]) Para 5 Para 5 01/22/2018 [place] ([facility] 12:00:00 [place] AM [facility]) Not using contraception Not using 01/22/2018 SANDOVAL NWJOHAN ([facility] contraception 12:00:00 [facility]) LMP: 1992 LMP: 1993 01/22/2018 [place] ([facility] 12:00:00 Luciano [facility]) Last pap smear date Last pap smear date 01/22/2018 Radha SUMMERS ([facility] 201310/08/13201310/08/13 12:00:[facility] Last mammogram date: Last mammogram date: 01/22/2018 [place] ([facility] 201203/30/12201203/30/12 12:00:00 [place] AM [facility]) History of menopause History of menopause 01/22/2018 [place] ([facility] 12:00:00 [place] AM [facility]) History of History of 01/22/2018 JHON ([facility] hyperlipidemia hyperlipidemia 12:00:00 [place] followed by IM followed by IM AM [facility]) 6 6 01/22/2018 [place] ([facility] 12:00:00 [place] AM [facility]) Aborta 1 SAB Aborta 1 SAB 01/22/2018 [place] (Lia nt 12:00:00 Luciano [facility]) History of hysterectomy History of 01/22/2018 SANDOVAL WASHBURN ([place] partial (as per pt) hysterectomy partial 12:00:00 [place] (as per pt) [facility]) Federally qualified [facility] Wrap Visit 01/22/2018 [facility] ([facility] (community health) Established Patient 12:00:00 [place] medically-necessary, updk-fv-yctm encounter (one-on-one) between an established patient and a fqhc practitioner during which time one or more fqhc services are rendered and includes a typical bundle of medicare-covered services that would be furnished automatic brine mixer operator to a patient receiving a fqhc visit DEBRIDEMENT NAILS SIX DEBRIDEMENT NAILS SIX 01/01/2018 [place] ([place] OR MORE (Two Class B OR MORE (Two Class B 12:00:00 [place] Findings) Findings) [facility]) Federally qualified [facility] Wrap Visit 01/01/2018 [facility] ([facility] (hc) Established Patient 12:00:00 Luciano visit, established AM [facility] [place] patient; [facility] medically-necessary, zxwm-ux-wtfc encounter (one-on-one) between an established patient and a fqhc practitioner during which time one or more fqhc services are rendered and includes a typical bundle of medicare-covered services that would be furnished automatic brine mixer operator to a patient receiving a fqhc visit Federally qualified [facility] Wrap Visit 10/30/2017 [facility] ([facility] (hc) Established Patient 12:00:00 Luciano visit, established AM [facility] [place] patient; [facility] medically-necessary, iihh-yn-jkpy encounter (one-on-one) between an established patient and a fqhc practitioner during which time one or more fqhc services are rendered and includes a typical bundle of medicare-covered services that would be furnished automatic brine mixer operator to a patient receiving a fqhc visit HEMOGLOBIN A1C HEMOGLOBIN A1C 10/30/2017 [place] ([facility] 12:00:00 Luciano [facility]) LIPID PANEL LIPID PANEL 10/30/2017 JHON ([facility] 12:00:00 [facility]) METABOLIC PANEL METABOLIC PANEL 10/30/2017 [place] ([facility] COMPREHE COMPREHE 12:00:00 [facility]) VITAMIN D 25 - HYDROXY VITAMIN D 25 - 10/30/2017 [facility] HYDROXY 12:00:00 [facility]) Triming of Triming of 10/30/2017 JHON ([facility] nondystrophic nails, nondystrophic nails, 12:00:00 [place] any number (Two Class B any number (Two Class AM [facility] Findings, Left Foot B Findings, Left [facility]) Great Toe, Right Foot Great Toe, Right Foot Great Toe) Great Toe) No recent change in No recent change in 04/29/2017 [facility] medical history medical history 12:00:00 [facility]) History of No carotid History of No carotid 09/10/2016 [place] ([facility] bruits bruits 12:00:00 [facility]) History of Eyes: normal History of Eyes: 09/10/2016 [place] ([facility] normal 12:00:00 [facility]) History of surgery History of surgery 09/10/2016 [facility] ([facility] tubal ligation tubal ligation 12:00:00 [facility]) Advance healthcare Advance healthcare 01/23/2016 [facility] ([facility] directive not on file directive not on file 12:00:00 [facility]) Past medical history Past medical history 04/13/2015 JHON ([facility] 12:00:00 [facility]) No fall No fall 07/14/2014 JHON ([facility] 12:00:00 [facility]) Not taking OTC pain Not taking OTC pain 05/06/2012 Radha [facility] ([facility] medication medication 12:00:00 [facility]) Not taking medication Not taking medication 05/06/2012 [place] ([facility] for joint pain for joint pain 12:00:00 [facility]) Current medication does Current medication 05/06/2012 [place] ([facility] not seem to be helping does not seem to be 12:00:00 [facility]) Results ID Date Data Source [id number] 08/25/2019 11:25:20 AM EDT GREEN[place] Y ([place] [id number] [facility]) Name Value Range Interpretation Description Data Source(s ) Supporting Code Document(s ) No Results No Results No Results JHON ([facility] Recorded For [facility]) ID Date Data Source [id number] 02/04/2019 01:02:18 PM EST SURI Michelle ([place] [id number] Name Value Range Interpretation Description Data Source(s ) Supporting Code Document(s ) No Results No Results No Results JHON ([facility] Recorded For [facility]) ID Date Data Source [id number] 01/19/2019 11:57:05 AM EDT GREENJOHN Y ([place] [id number] [facility]) Name Value Range Interpretation Description Data Source(s ) Supporting Code Document(s ) No Results No Results No Results JHON ([facility] Recorded For [facility]) ID Date Data Source [id number] 11/03/2017 11:01:00 AM EDT JHON ([facility]) Name Value Range Interpretation Description Data Source(s ) Supporting Code Document(s ) Hemoglobin 5.8 % Above high normal Hemoglobin A1c CRESCENCIO AY ([facility] A1c/Hemoglobi [place]iano n.total in [facility] Blood [facility]) Note: Prediabetes: 5.7 - 6.4 Diabetes: >6.4 Glycemic control for adults with diabetes: <7.0 ID Date Data Source [id number] 11/03/2017 11:01:00 AM EDT JHON ([facility]) Name Value Range Interpretation Description Data Source(s ) Supporting Code Document(s ) Cholesterol in 16 VLDL JHON VLDL mg/dL Cholesterol Josue ([place] [Mass/volume] [facility] in Serum or Health Center) Plasma by calculation Laboratory N/A Comment: JHON comment [Text] ([place] in Report [facility]) Triglyceride 82 Triglycerides JHON [Mass/volume] mg/dL ([place] in Serum or [facility] Plasma [facility]) Cholesterol in 66 HDL Cholesterol JHON HDL mg/dL ([place] [Mass/volume] [facility] in Serum or [facility]) Plasma Cholesterol 210 Above high Cholesterol, JHON [Mass/volume] mg/dL normal Total ([place] in Serum or [facility] Plasma [facility]) Cholesterol in 128 Above high LDL Cholesterol JHON LDL mg/dL normal Calc ([place] [Mass/volume] [facility] in Serum or [facility]) Plasma by calculation ID Date Data Source [id number] 11/03/2017 11:01:00 AM EDT JHON ([facility]) Name Value Range Interpretation Description Data Sup porting Code Source(s) Document(s ) Bilirubin.total 0.4 Bilirubin, JHON [Mass/volume] in mg/dL Total ([facility] or [facility]) Albumin 4.2 Albumin JHON [Mass/volume] in g/dL ([facility]) Calcium 9.3 Calcium JHON [Mass/volume] in mg/dL ([facility]) Protein 7.2 Protein, JHON [Mass/volume] in g/dL Total ([facility] or [facility]) Urea nitrogen 10 BUN JHON [Mass/volume] in mg/dL ([facility]) Glucose 93 Glucose JHON [Mass/volume] in mg/dL ([facility]) Chloride 102 Chloride JHON [Moles/volume] in mmol/L ([facility]) Sodium 138 Sodium JHON [Moles/volume] in mmol/L ([facility]) Alkaline 81 IU/L Alkaline JHON phosphatase Phosphatase ([place] [Enzymatic Neighborhood activity/volume] [facility] in Serum or Plasma [place]) Potassium 4.3 Potassium JHON [Moles/volume] in mmol/L ([facility]) Aspartate 20 IU/L AST (SGOT) JHON aminotransferase ([place] [Enzymatic Neighborhood activity/volume] [facility] in Serum or Plasma [place]) Creatinine 0.68 Creatinine JHON [Mass/volume] in mg/dL ([facility]) Urea 15 BUN/Creatinin JHON nitrogen/Creatinin e Ratio ([place] on e [Mass Ratio] in [facility] Serum or Plasma [facility]) Albumin/Globulin 1.4 A/G Ratio JHON [Mass Ratio] in ([place] Serum or Plasma [facility]) Carbon dioxide, 20 Carbon [place] total mmol/L Dioxide, ([place] [Moles/volume] in Total [facility] or [facility]) Globulin 3.0 Globulin, [place] [Mass/volume] in g/dL Total ([place] Serum by [facility]) Alanine 15 IU/L ALT (SGPT) [place] aminotransferase ([place] [Enzymatic Neighborhood activity/volume] Health in Serum or Plasma Center) eGFR If Africn Am 98 eGFR If JHON mL/min/ Africn Am ([address]) eGFR If NonAfricn 85 eGFR If JHON Am mL/min/ NonAfricn Am ([address]) ID Date Data Source [id number] 11/03/2017 11:01:00 AM EDT [place] ([facility]ia [facility]) Name Value Range Interpretation Description Data Source(s ) Supporting Code Document(s ) Calcidiol 23.9 Below low normal Vitamin D, [place] ([place] [Mass/volume ng/mL 25-Hydroxy [place]iano ] in Serum [facility] or [facility]) Note: Vitamin D deficiency has been defi denzel by the [place] ofMedicine and an Endocrine Society practice guideline as alevel of serum 25-OH vitamin D less than 20 ng/mL (1,2).The Endocrine Society went o n to further define vitamin Dinsufficiency as a level between 21 and 29 ng/mL (2).1. I OM ([place] of Medicine). 2010. Dietary reference intakes for calcium and D. [place]: The National Academies Press.2. Fili MF, Aileen NC, Shannon Early LEVINE, et al. Evaluation, treatment, and prevention of vitamin D deficiency : an Endocrine Society clinical practice guideline. JCEM. 2010; 96(7):1911-30 . Procedure Social History Code Duration Value Status Description Data Source(s ) Smoking 02/04/2019 Never smoked completed Never smoked [place] ( [facility] 01:02:10 PM tobacco tobacco (finding) Luciano EST (finding) [facility]) Smoking 05/20/2018 Never smoked completed Never smoked JHON ( [facility] 02:45:23 PM tobacco tobacco (finding) [place] EST ([facility]) Assertion Caffeine user completed Caffeine user JHON ([facility] (finding) ([facility]) [facility]) Assertion Social and completed Social and JHON (Moun t personal history personal history Ve rnon finding finding (finding) [place] ([facility]) [facility]) Assertion Exercises completed Exercises JHON (Moun t regularly regularly Luciano (finding) ([facility]) [facility]) Assertion Smoker (finding) completed Smoker (finding) [place] ([facility]) Assertion Smokes tobacco completed Smokes tobacco [place] AY ([facility] daily (finding) daily (finding) [place] [facility]) Assertion Finding of completed Finding of JHON (Moun t alcohol intake alcohol intake [place] ([facility]) ([facility]) [facility]) Assertion Tobacco user completed Tobacco user JHON ( [facility] (finding) ([facility]) [facility]) Assertion Finding of completed Finding of JHON (Moun t alcohol intake alcohol intake [place] ([facility]) ([facility]) [facility]) Assertion self-reliant in completed JHON ([facility] usual daily [place] activities [facility]) Assertion Finding relating completed Finding relating GR EENWAY ([facility] to drug misuse to drug misuse [place] behavior behavior [facility] ([facility] ([facility]) Assertion Current drinker completed Current drinker SANDOVAL WASHBURN ([facility] of alcohol of alcohol [place] ([facility]) ([facility]) Assertion Finding of completed Finding of JHON (Moun t activity of activity of daily [place] daily living living (finding) Neighb [place] ([facility]) [facility]) Assertion sexual history completed JHON ( [facility]) Assertion Exercise history completed Exercise history GR EENWAY ([facility] finding finding (finding) [place] ([facility]) [facility]) Assertion Exercise history completed Exercise history GR EENWAY ([facility] finding finding (finding) [place] ([facility]) [facility]) Assertion Currently not completed Currently not JHON ([facility] sexually active sexually active [place] on (finding) ([facility]) [facility]) Assertion Social drinker completed Social drinker GREENW AY ([facility] (finding) ([facility]) [facility]) Assertion Sexually active completed Sexually active GREE NWJOHAN ([facility] (finding) (finding) [facility]) Assertion Non-smoker completed JHON ([facility]) Assertion Alcohol use: 2 completed JHON ( [facility] drinks or less [place] per day [facility]) Smoking Unknown if ever completed Unknown if ever [place] smoked smoked Hospital Vital Signs ID Date Data Source UNK Name Value Range Interpretation Code Description Data Source(s) PhenX - pain, 0 0 JHON ([facility] abdominal - type [facility]) protocol Follow Up & would like to get tested for COVID-19 Body surface area Derived from 1.89 m2 1.89 m2 HJON ([facility]) Follow Up & would like to get tested for COVID-19 Body mass index (BMI) 26.6 kg/m2 26.6 kg/m2 GRE ENWAY ([place] [[facility]] [facility] Follow Up & would like to get tested for COVID-19 Body weight 170 [lb_av] 170 [lb_av] JHON ([facility]) Follow Up & would like to get tested for COVID-19 Body height 67 [in_us] 67 [in_us] JHON ([facility]) Follow Up & would like to get tested for COVID-19 Body temperature 97.8 [degF] 97.8 [degF] RIVER PINESW AY ([facility]) Follow Up & would like to get tested for COVID-19 Heart rate rhythm 1 1 GREENWA Y ([facility]) Follow Up & would like to get tested for COVID-19 Diastolic blood pressure 93 mm[Hg] 93 mm[Hg] JHON ([facility]) Follow Up & would like to get tested for COVID-19 Systolic blood pressure 136 mm[Hg] 136 mm[Hg] G REENWAY ([facility]) Follow Up & would like to get tested for COVID-19 PhenX - pain, abdominal - type and 0 0 JHON ([facility] [place]) routine foot folllow up Body height 67 [in_us] 67 [in_us] JHON ([facility]) routine foot folllow up PhenX - pain, abdominal - type and 0 0 JHON ([facility]) Follow up Body surface area Derived from 1.91 m2 1.91 m2 JHON ([facility]) Follow up Body mass index (BMI) 27.3 kg/m2 27.3 kg/m2 GRE ENWAY ([place] [[facility]] [facility]) Follow up Body weight 174 [lb_av] 174 [lb_av] JHON ([facility]) Follow up Body height 67 [in_us] 67 [in_us] JHON ([facility]) Follow up Body temperature 98 [degF] 98 [degF] JHON ([facility]) Follow up Heart rate rhythm 1 1 Y ([facility]) Follow up Heart rate 84 /min 84 /min JHON ([facility]) Follow up Diastolic blood pressure 76 mm[Hg] 76 mm[Hg] JHON ([facility]) Follow up Systolic blood pressure 142 mm[Hg] 142 mm[Hg] G REENWAY ([facility]) Follow up PhenX - pain, abdominal - type and 0 0 JHON ([facility]) complains of itching in both eyes Body height 67 [in_us] 67 [in_us] JHON ([facility]) complains of itching in both eyes PhenX - pain, abdominal - type and 0 0 JHON ([facility]) Follow up Body surface area Derived from 1.91 m2 1.91 m2 JHON ([facility]) Follow up Body mass index (BMI) 27.4 kg/m2 27.4 kg/m2 GRE ENWAY ([place] [Ratio] [facility]) Follow up Body weight 175 [lb_av] 175 [lb_av] JHON ([facility]) Follow up Body height 67 [in_us] 67 [in_us] JHON ([facility]) Follow up Body temperature 97.6 [degF] 97.6 [degF] GREENW AY ([facility]) Follow up Heart rate rhythm 1 1 GREEN Y ([facility]) Follow up Heart rate 91 /min 91 /min JHON ([facility]) Follow up Diastolic blood pressure 73 mm[Hg] 73 mm[Hg] JHON ([facility]) Follow up Systolic blood pressure 124 mm[Hg] 124 mm[Hg] G KATELYNNWAY ([facility]) Follow up PhenX - pain, abdominal - type and 0 0 JHON ([facility]) 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] [facility]) lab test Body weight 170 [lb_av] 170 [lb_av] JHON ([facility]) lab test Body height 67 [in_us] 67 [in_us] JHON ([facility]) lab test Body temperature 97.8 [degF] 97.8 [degF] CRESCENCIO AY ([facility]) lab test Heart rate rhythm 1 1 SURI Y ([facility]) lab test Heart rate 79 /min 79 /min JHON ([facility]) lab test Diastolic blood pressure 74 mm[Hg] 74 mm[Hg] JHON ([facility]) lab test Systolic blood pressure 116 mm[Hg] 116 mm[Hg] G REEYonatanRILEY ([facility]) lab test Patient Treatment Plan of Care Planned Activity Planned Date Details Description Data Source (s) Calcium + D3 08/25/2019 JHON ([place] [id number] Oral Tablet 12:00:00 AM [facility]) Zetia 10MG Oral Tablet 05/20/2018 THOMAS RILEY ([place] 12:00:00 AM [facility]) Naproxen 500 MG Oral 05/20/2018 SURI Y ([place] Tablet 12:00:00 AM [facility]) Omeprazole 20MG Oral 05/20/2018 SURI Y ([place] Tablet Delayed Release 12:00:00 AM [facility]) Zetia 10MG Oral Tablet 10/30/[address] ([place] 12:00:00 AM [facility]) Cholecalciferol 1000 UNT 10/30/2017 GRE ENWAY ([place] Oral Tablet 12:00:00 AM [facility]) Tamiflu 75MG Oral Capsule 06/16/2017 GR EENWAY ([place] 12:00:00 AM [facility]) atorvastatin 20 MG Oral 04/24/2017 GREE NWAY ([place] Tablet 12:00:00 AM [facility]) Cholecalciferol 1000 UNT 04/24/2017 GRE ENWAY ([place] Oral Tablet 12:00:00 AM [facility]) Bacitracin 0.5 UNT/MG 02/04/2017 CRESCENCIO AY ([place] Ophthalmic Ointment 12:00:00 AM [facility]) EQL Vitamin D3 5000UNIT 12/30/2016 GENNYE NWAY ([place] Oral Capsule 12:00:00 AM [facility]) Simvastatin 20 MG Oral 12/30/[address] ([place] Tablet 12:00:00 AM [facility]) atorvastatin 20 MG Oral 12/30/2016 GREE NWAY ([place] Tablet 12:00:00 AM [facility]) Maxitrol [id number] 03/05/[address] ([place] Ointment 12:00:00 AM [facility]) atorvastatin 10 MG Oral 01/23/2016 GREE NWAY ([place] Tablet 12:00:00 AM [facility]) SM Vitamin D3 1000 UNIT 01/23/2016 GREE NWAY ([place] Tablet 12:00:00 AM [facility]) Crestor 5 MG Tablet 11/23/2015 JHON ([place] 12:00:00 AM [facility]) Naproxen 375 MG Oral 11/23/2015 Y ([place] Tablet 12:00:00 AM [facility]) Lipitor 10 MG Tablet 11/23/2015 THOMAS Y ([place] 12:00:00 AM [facility]) Cholecalciferol 77784 UNT 09/01/2014 GR EENWAY ([place] Oral Capsule 12:00:00 AM [facility]) Tessalon Perles 100MG OR 07/14/2014 GRE ENWAY ([place] CAPS 12:00:00 AM [facility]) Zithromax Z-Tico 250MG OR 04/12/2014 GRE ENWAY ([place] TABS 12:00:00 AM [facility]) Promethazine VC/Codeine 04/12/2014 GREE NWAY ([place] 6.25-5-10MG/5ML OR SYRP 12:00:[address] [facility]) Lipitor 10MG OR TABS 01/11/2014 GREENWA Y ([place] 12:00:00 AM [facility]) Lipitor 10MG OR TABS 12/31/2013 GREENWA Y ([place] 12:00:00 AM [facility]) Lipitor 10MG OR TABS 10/19/2013 GREENWA Y ([place] 12:00:00 AM [facility]) Cholecalciferol 86319 UNT 10/19/2013 GR EENWAY ([place] Oral Capsule 12:00:00 AM EDT [facility]) HYDROcodone Bitartrate 05/20/[address] ([place] SANDEEP 12:00:00 AM [facility]) Ventolin HFA 108 (90 02/06/2013 THOMASWA Y ([place] [employer])MCG/ACT IN AERS 12:00:00 AM [facility]) LamISIL 250MG OR TABS 01/27/2013 THOMASW AY ([place] 12:00:00 AM [facility]) Crestor 5MG OR TABS 01/27/2013 JHON ([place] 12:00:00 AM [facility]) Triamcinolone Acetonide 1 01/27/2013 GR ОЛЕГ ([place] MG/ML Topical Lotion 12:00:00 AM [facility]) Oxycodone/Acetaminophen 12/24/2012 [facility] (Percocet 5MG-325 Mg 12:00:00 AM EDT Tablet*) 1 Tab Tab, 1 Tab Oral Clindamycin Hcl (Cleocin 12/24/2012 [facility] Capsule*) 300 Mg Capsule, 12:00:00 AM EDT 300 Mg Oral CeleBREX 200MG OR CAPS 05/06/[address] ([place] 12:00:00 AM [facility]) Propoxyphene [place] [facility] spital Napsylate/Acetam (Darvocet-N 100*) 1 Tab Tab, 1 Tab G Tube Aspirin (Aspirin Enteric [facility] Coated*) 81 Mg Tabec, 81 Mg Oral
[2019-12-18] MEDS ORDERED: OXYMETAZOLINE 0.05% NASAL SOLUTION 15 ML BOTTLE NS ONE (16:30)
--- NOTE | 2019-12-18 16:57 | PDOC ---
History of Present Illness - General Chief Complaint: Nasal Bleeding Stated Complaint: NOSE PROBLEM Time Seen by Provider: 12/18/19 16:29 History Source: Patient Exam Limitations: No Limitations Past History - Travel History Traveled outside of the country in the last 30 days: No Close contact w/someone who was outside of country & ill: No - Medical History Allergies/Adverse Reactions: Allergies Allergy/AdvReac Type Severity Reaction Status Date / Time Penicillins AdvReac Verified 12/18/19 16:06 Home Medications: Ambulatory Orders Cephalexin [Keflex] 500 mg PO QID #20 capsule 12/15/19 Sodium Chloride [Nasal [place]] 2 spray NS BID #1 bottle 12/18/19 COPD: No - Psycho-Social/Smoking History Smoking History: Never smoked Have you smoked in the past 12 months: No - Substance Abuse Hx (Audit-C & DAST Scrn) How often the patient has a drink containing alcohol: Never Score: In Men: 4 or > Positive; In Women: 3 or > Positive: 0 Screen Result (Pos requires Nsg. Audit-10AR): Negative Review of Systems - Review of Systems Able to Perform ROS?: Yes Comments:: 12/18/19 16:51 CONSTITUTIONAL: Absent: fever, chills, diaphoresis, generalized weakness, malaise, loss of appet ite HEENT: Present: "I need my packing out" Absent: rhinorrhea, nasal congestion, throat pain, throat swelling, difficulty swallowing, mouth swelling, ear pain, eye pain, visual Changes SKIN: Absent: rash, itching, pallor HEMATOLOGIC/IMMUNOLOGIC: Absent: easy bleeding, easy bruising, lymphadenopathy, frequent infections ENDOCRINE: Absent: unexplained weight gain, unexplained weight loss, heat intolerance, cold intolerance NEUROLOGIC: Absent: headache, focal weakness or paresthesias, dizziness, unsteady gait, seizure, mental status changes, bladder or bowel incontinence PSYCHIATRIC: Absent: anxiety, depression, suicidal or homicidal ideation, hallucinations. Is the patient limited Khmer proficient: No *Physical Exam - Vital Signs Last Vital Signs Temp Pulse Resp BP Pulse Ox 98.3 F 94 H 16 121/76 99 12/18/19 16:06 12/18/19 16:06 12/18/19 16:06 12/18/19 16:06 12/18/19 16:06 - Physical Exam 12/18/19 16:53 GENERAL: The patient is awake, alert, and fully oriented, in no acute distress. HEAD: Normal with no signs of trauma. EYES: Pupils equal, round and reactive to light, extraocular movements intact, sclera anicteric, conjunctiva clear. HEENT: Rhino Rocket in place to the left nare. Brown mucousy discharge surrounding the [place]. No active bleeding. No blood in the posterior pharynx.No nasal congestion or rhinorrhea. No sinus Tenderness. Mucous membranes are moist. No tonsillar erythema, exudate or edema. Uvula is midline. No TM bulging, dullness or erythema EXTREMITIES: Normal range of motion, no edema. NEUROLOGICAL: Normal speech, normal gait. PSYCH: Normal mood, normal affect. SKIN: Warm, Dry, normal turgor, no rashes or lesions noted. Medical Decision Making - Medical Decision Making 12/18/19 16:53 The patient is a 71-year-old female who presents to the ER for packing removal. She states she was here 3 days ago with a nosebleed that would not stop. A Rhino Rocket was placed in this ED. Patient was placed on Keflex which she has been taking. She has no complaints at this time. Denies tasting blood. Denies lightheadedness, dizziness nausea and vomiting. A/P: Removal of Rhino Rocket On exam patient has the Rhino Rocket in place to the left nare, brownish mucousy discharge surrounding the [place]. Air was removed from the [place] R[place], gentle pressure was applied to remove the Rhino R[place]. No blood after removal of the Rhino R[place]. Scab intact to the left nare as seen with the otoscope. Will refer to ENT. Patient states that she did not have ENT remove the Rhino Rocket as they did not accept her insurance. Discharge home with return precautions I discussed the physical exam findings, ancillary test results and final diagnoses with the patient. I answered all of the patient's questions. The patient was satisfied with the care received and felt comfortable with the discharge plan and treatment plan. The Patient agrees to follow up with the primary care physician/specialist within 24-72 hours. Return precautions were given. Discharge - Discharge Information Problems reviewed: Yes Clinical Impression/Diagnosis: Encounter for removal of nasal pack Condition: Stable Disposition: HOME - Admission No - Follow up/Referral Referrals: Bernardino Rajan MD [Staff Physician] - Jay Smith MD [Staff Physician] - - Patient Discharge Instructions Patient Printed Discharge Instructions: DI for Nosebleed Additional Instructions: You had your nasal packing removed today. Please avoid blowing your nose for an additional 48 hours to prevent rebleeding. Please use the nasal spray twice a day to help keep the nose moist. Do not put anything up the nose and do not pick the nose. Please follow-up with ENT for further management of your symptoms. 2 referrals been provided to you. Call them and see if they take your insurance. Return to ER for rebleeding of your nose, lightheadedness, dizziness or if you have any changes in your symptoms. - Post Discharge Activity
== END 2019-12-18 17:10 | disposition home or self-care (01) ==
LOC: JER 15:54
DX: Z48.00 Encounter for change or removal of nonsurgical wound dressing (principal)
CPT/HCPCS: 99281-25

== ENCOUNTER 2020-08-28 11:14 | Emergency (ER) | payer BC ==
[2020-08-28 11:27] VITALS: BMI 25.5
[2020-08-28] MEDS ORDERED: CLINDAMYCIN HCL 150 MG CAPSULE (FP) PO ONE (11:55)
[2020-08-28] MEDS ORDERED: SULFAMETHOXAZOLE/TRIMETHOPRIM 800MG/160MG D.S. TABLET PO ONE (11:56)
[2020-08-28] MEDS ORDERED: CLINDAMYCIN HCL 150 MG CAPSULE (FP) ONE (12:06)
[2020-08-28] MEDS ORDERED: SULFAMETHOXAZOLE/TRIMETHOPRIM 800MG/160MG D.S. TABLET ONE (12:06)
[2020-08-28 14:09] VITALS: BP 135/71; PULSE 90; TEMP 97.6
== END 2020-08-28 14:10 | disposition home or self-care (01) ==
LOC: JER 11:14
DX: L03.116 Cellulitis of left lower limb (principal)
CPT/HCPCS: 73630-TC-LT; 76882-TC-LT; 99283-25

== ENCOUNTER 2020-08-30 15:20 | Emergency (ER) | payer BC ==
[2020-08-30 15:34] VITALS: BP 123/61; PULSE 96; TEMP 98.2; BMI 28.1
== END 2020-08-30 16:04 | disposition home or self-care (01) ==
LOC: JERFT 15:20
DX: Z48.00 Encounter for change or removal of nonsurgical wound dressing (principal)
CPT/HCPCS: 99281-25